=== PATIENT | female | born 1990 | race American Indian/Alaskan Native ===

== ENCOUNTER 2017-11-30 18:34 | Emergency (ER) | payer MEDICAID ==
[2017-11-30 20:12] LABS: Hematocrit 24.9 % (30.3-42.9); Hemoglobin 7.7 gm/dl (10.1-14.3); Mean Corpuscular HGB Conc 31 % (30-34); Platelet Count 783 K/mm3 (140-440); Red Blood Count 3.64 M/mm3 (3.65-5.03)
[2017-11-30 20:22] LABS: Mean Corpuscular Hemoglobin 21 pg (28-32); Mean Corpuscular Volume 68 fl (79-97)
[2017-12-01 00:34] VITALS: BP 97/58
[2017-12-01] MEDS ORDERED: PERCOCET 5/325 PO ONE (01:45)
--- NOTE | 2017-12-01 03:53 | Emergency Department Report ---
ED General Adult HPI - General Chief complaint: Rectal Pain Stated complaint: HERROIDS AND EAR INFECTION Time Seen by Provider: 12/01/17 02:30 Source: patient Mode of arrival: Ambulatory Limitations: No Limitations - History of Present Illness Initial comments: 27-year-old -Algerian female comes in complaining of hemorrhoids and left ear pain. Patient has a history of Crohn's. Patient denies any abdominal pain at this time. She reports reports that she constantly strains due to her Crohn's. Patient reports that she is try taken the tetanus pads and over-the- counter suppositories which she reports has not helped. She does admit to having some tarry blood but she reports she is anemic and does come and goes of her Crohn's. Patient also complains of left ear pain. She has not taken any pain medication for this. She denies any dizziness shortness of breath chest pain. -: days(s) (5) Location: buttocks Radiation: non-radiation Severity scale (0 -10): 2 Quality: stabbing, sharp Consistency: constant Improves with: none Worsens with: movement - Related Data Previous Rx's Medication Instructions Recorded Last Taken Type Ferrous Sulfate [Feosol] 1 tab PO BID #60 tablet 04/24/13 10/30/13 14:00 Rx Docusate Sodium [Colace CAP] 100 mg PO BID #60 capsule 04/16/15 Unknown Rx Dicyclomine [Bentyl] 10 mg PO QID PRN #20 bottle 10/16/17 Unknown Rx Levofloxacin [Levaquin TAB] 500 mg PO QDAY #10 tablet 10/16/17 Unknown Rx metroNIDAZOLE [Flagyl] 500 mg PO Q8HR #30 tablet 10/16/17 Unknown Rx Hydrocortisone [Anusol-Hc] 1 suppositor RC QID PRN #1 box 12/01/17 Unknown Rx Allergies Allergy/AdvReac Type Severity Reaction Status Date / Time No Known Allergies Allergy Verified 06/14/13 00:51 ED Review of Systems ROS: Stated complaint: HERROIDS AND EAR INFECTION Other details as noted in HPI ED Past Medical Hx - Past Medical History Hx Hypertension: No Hx Congestive Heart Failure: No Hx Diabetes: No Hx Deep Vein Thrombosis: No Hx Renal Disease: No Hx Sickle Cell Disease: No Hx Seizures: No Hx Asthma: No Hx COPD: No Hx HIV: No Additional medical history: crohn's and anemia - Surgical History Past Surgical History?: No - Social History Smoking Status: Current Every Day Smoker Substance Use Type: None - Medications Home Medications: Home Medications Medication Instructions Recorded Confirmed Last Taken Type Ferrous Sulfate [Feosol] 1 tab PO BID #60 tablet 04/24/13 10/14/17 10/30/13 14: 00 Rx Docusate Sodium [Colace CAP] 100 mg PO BID #60 capsule 04/16/15 10/14/17 Unknown Rx Dicyclomine [Bentyl] 10 mg PO QID PRN #20 bottle 10/16/17 Unknown Rx Levofloxacin [Levaquin TAB] 500 mg PO QDAY #10 tablet 10/16/17 Unknown Rx metroNIDAZOLE [Flagyl] 500 mg PO Q8HR #30 tablet 10/16/17 Unknown Rx Hydrocortisone [Anusol-Hc] 1 suppositor RC QID PRN #1 box 12/01/17 Unknown Rx ED Physical Exam - General Limitations: No Limitations General appearance: alert, in no apparent distress - Head Head exam: Present: atraumatic, normocephalic - ENT ENT exam: Present: mucous membranes moist, TM's normal bilaterally - Expanded ENT Exam Expanded Throat exam: Positive: tonsillar exudate (left tonsillar superior) - Rectal Rectal exam: Present: normal rectal tone, hemorrhoids (not thrombosed non- erythematous non-edematous). Absent: bloody stool - Extremities Exam Extremities exam: Present: normal inspection - Skin Skin exam: Present: warm, dry, intact, normal color. Absent: rash ED Course Vital Signs 11/30/17 12/01/17 18:54 00:31 Temperature 98.5 F 99.0 F Pulse Rate 131 H 112 H Respiratory 18 18 Rate Blood Pressure 106/66 Blood Pressure 97/58 [Right] O2 Sat by Pulse 99 100 Oximetry ED Medical Decision Making - Lab Data Result diagrams: 11/30/17 19:55 - Medical Decision Making Patient has been evaluated by this provider fast track. Patient was given Percocet for pain management. Discussed the patient I would discharge her on Anusol suppositories Refer her to colorectal. Ibuprofen for pain management. Critical care attestation.: If time is entered above; I have spent that time in minutes in the direct care of this critically ill patient, excluding procedure time. ED Disposition Clinical Impression: External hemorrhoids, Anemia due to chronic blood loss, Left ear pain Disposition: TO HOME OR SELFCARE Is pt being admited?: No Does the pt Need Aspirin: No Condition: Stable Instructions: Anemia (ED), Hemorrhoids (ED) Additional Instructions: Please use suppositories as prescribed. If her symptoms persist please follow- up with your colorectal specialist. Prescriptions: Hydrocortisone [Anusol-Hc] 1 suppositor RC QID PRN #1 box PRN Reason: Pain , Severe (7-10) Referrals: PRIMARY CARE,MD [Primary Care Provider] - 3-5 Days Forms: Work/School Release Form(ED)
== END 2017-12-01 04:20 | disposition home or self-care (01) ==
LOC: ED 18:34
DX: K64.4 Residual hemorrhoidal skin tags (principal); D50.0 Iron deficiency anemia secondary to blood loss (chronic); H92.02 Otalgia, left ear; F17.200 Nicotine dependence, unspecified, uncomplicated
CPT/HCPCS: 36415; 84703; 85027; 87116; 87430; 99283

== ENCOUNTER 2017-12-04 13:22 | Emergency (ER) | payer MEDICAID ==
[2017-12-04 13:46] VITALS: BP 104/66
--- NOTE | 2017-12-04 14:03 | Emergency Department Report ---
ED Male HPI - General Chief complaint: GI Bleed Stated complaint: HEMORRHOIDS Time Seen by Provider: 12/04/17 13:59 Source: patient, family Mode of arrival: Wheelchair Limitations: No Limitations - Related Data Previous Rx's Medication Instructions Recorded Last Taken Type Ferrous Sulfate [Feosol] 1 tab PO BID #60 tablet 04/24/13 10/30/13 14:00 Rx Docusate Sodium [Colace CAP] 100 mg PO BID #60 capsule 04/16/15 Unknown Rx Dicyclomine [Bentyl] 10 mg PO QID PRN #20 bottle 10/16/17 Unknown Rx Levofloxacin [Levaquin TAB] 500 mg PO QDAY #10 tablet 10/16/17 Unknown Rx metroNIDAZOLE [Flagyl] 500 mg PO Q8HR #30 tablet 10/16/17 Unknown Rx Hydrocortisone [Anusol-Hc] 1 suppositor RC QID PRN #1 box 12/01/17 Unknown Rx Allergies Allergy/AdvReac Type Severity Reaction Status Date / Time No Known Allergies Allergy Verified 06/14/13 00:51 ED Review of Systems ROS: Stated complaint: HEMORRHOIDS Other details as noted in HPI ED Past Medical Hx - Past Medical History Previous Medical History?: Yes Hx Hypertension: No Hx Congestive Heart Failure: No Hx Diabetes: No Hx Deep Vein Thrombosis: No Hx Renal Disease: No Hx Sickle Cell Disease: No Hx Seizures: No Hx Asthma: No Hx COPD: No Hx HIV: No Additional medical history: crohn's and anemia - Surgical History Past Surgical History?: No - Social History Smoking Status: Current Every Day Smoker Substance Use Type: Marijuana, Prescribed - Medications Home Medications: Home Medications Medication Instructions Recorded Confirmed Last Taken Type Ferrous Sulfate [Feosol] 1 tab PO BID #60 tablet 04/24/13 10/14/17 10/30/13 14: 00 Rx Docusate Sodium [Colace CAP] 100 mg PO BID #60 capsule 04/16/15 10/14/17 Unknown Rx Dicyclomine [Bentyl] 10 mg PO QID PRN #20 bottle 10/16/17 Unknown Rx Levofloxacin [Levaquin TAB] 500 mg PO QDAY #10 tablet 10/16/17 Unknown Rx metroNIDAZOLE [Flagyl] 500 mg PO Q8HR #30 tablet 10/16/17 Unknown Rx Hydrocortisone [Anusol-Hc] 1 suppositor RC QID PRN #1 box 12/01/17 Unknown Rx ED Physical Exam - General Limitations: No Limitations ED Course Vital Signs 12/04/17 13:42 Temperature 99.1 F Pulse Rate 129 H Respiratory 18 Rate Blood Pressure 104/66 O2 Sat by Pulse 99 Oximetry Critical care attestation.: If time is entered above; I have spent that time in minutes in the direct care of this critically ill patient, excluding procedure time. ED Disposition Condition: Stable
[2017-12-04] MEDS ORDERED: LET TOPICAL TP ONE (14:12)
[2017-12-04] MEDS ORDERED: NORCO 5/325 PO ONE (14:12)
--- NOTE | 2017-12-04 14:13 | Emergency Department Report ---
ED Female HPI - General Chief complaint: GI Bleed Stated complaint: HEMORRHOIDS Time Seen by Provider: 12/04/17 13:59 Source: patient, family Mode of arrival: Wheelchair Limitations: No Limitations - History of Present Illness Initial comments: This is a 37-year-old female here reports that she is having hemorrhoid pain. She says she was here on 12/01/2017 and was given prescription for hydrocortisone suppository for hemorrhoids. She said this is very going on for over a week and chart review reflects patient visits to emergency room on 2017 was given prescription for referral but she did not follow up. Patient says she could not reach the doctor. Denies any rectal bleeding in or constipation. Denies any nausea or vomiting. Denies any back pain or abdominal pain. Denies any urinary burning, frequency or urgency. Last menstrual. A 11/20/2017. She is here to be evaluated. MD Complaint: other (hemorrhoid and rectal pain) Onset/Timin -: week(s) Location: other (rectal) Radiation: non-radiating Severity: severe Severity scale (0 -10): 10 Quality: burning Consistency: constant Improves with: none Worsens with: movement Are you Now?: No Last Menstrual Period: 11/20/17 EDC: 08/27/18 Associated Symptoms: denies: hematuria, rash, seizure, shortness of breath, syncope, weakness, other, vaginal discharge, vaginal bleeding, abdominal pain, nausea/vomiting, fever/chills, headaches, loss of appetite, dysuria - Related Data Sexually active: No Previous Rx's Medication Instructions Recorded Last Taken Type Ferrous Sulfate [Feosol] 1 tab PO BID #60 tablet 04/24/13 10/30/13 14:00 Rx Docusate Sodium [Colace CAP] 100 mg PO BID #60 capsule 04/16/15 Unknown Rx Dicyclomine [Bentyl] 10 mg PO QID PRN #20 bottle 10/16/17 Unknown Rx Levofloxacin [Levaquin TAB] 500 mg PO QDAY #10 tablet 10/16/17 Unknown Rx metroNIDAZOLE [Flagyl] 500 mg PO Q8HR #30 tablet 10/16/17 Unknown Rx Hydrocortisone [Anusol-Hc] 1 suppositor RC QID PRN #1 box 12/01/17 Unknown Rx Hydrocortisone [Anusol-Hc] 30 gm TP BID PRN #1 cream..g. 12/04/17 Unknown Rx Let Topical 3 ml TP Q8H PRN #1 syringe 12/04/17 Unknown Rx traMADol [Ultram] 50 mg PO Q6HR PRN #12 tablet 12/04/17 Unknown Rx Allergies Allergy/AdvReac Type Severity Reaction Status Date / Time No Known Allergies Allergy Verified 06/14/13 00:51 ED Review of Systems ROS: Stated complaint: HEMORRHOIDS Other details as noted in HPI Constitutional: denies: chills, fever ENT: denies: throat pain Respiratory: denies: cough, shortness of breath, SOB with exertion, SOB at rest , wheezing Cardiovascular: denies: chest pain, palpitations, edema, syncope Gastrointestinal: other (rectal pain and hemorrhoids). denies: abdominal pain, nausea, diarrhea, constipation, hematemesis, melena, hematochezia Genitourinary: denies: urgency, dysuria, frequency, hematuria, discharge, abnormal menses Musculoskeletal: denies: back pain, joint swelling, arthralgia, myalgia Skin: denies: rash, lesions Neurological: denies: headache, weakness Psychiatric: denies: depression ED Past Medical Hx - Past Medical History Previous Medical History?: Yes Hx Hypertension: No Hx Congestive Heart Failure: No Hx Diabetes: No Hx Deep Vein Thrombosis: No Hx Renal Disease: No Hx Sickle Cell Disease: No Hx Seizures: No Hx Asthma: No Hx COPD: No Hx HIV: No Additional medical history: crohn's and anemia - Surgical History Past Surgical History?: No - Family History Family history: hypertension - Social History Smoking Status: Current Every Day Smoker Substance Use Type: Marijuana, Prescribed - Medications Home Medications: Home Medications Medication Instructions Recorded Confirmed Last Taken Type Ferrous Sulfate [Feosol] 1 tab PO BID #60 tablet 04/24/13 10/14/17 10/30/13 14: 00 Rx Docusate Sodium [Colace CAP] 100 mg PO BID #60 capsule 04/16/15 10/14/17 Unknown Rx Dicyclomine [Bentyl] 10 mg PO QID PRN #20 bottle 10/16/17 Unknown Rx Levofloxacin [Levaquin TAB] 500 mg PO QDAY #10 tablet 10/16/17 Unknown Rx metroNIDAZOLE [Flagyl] 500 mg PO Q8HR #30 tablet 10/16/17 Unknown Rx Hydrocortisone [Anusol-Hc] 1 suppositor RC QID PRN #1 box 12/01/17 Unknown Rx Hydrocortisone [Anusol-Hc] 30 gm TP BID PRN #1 cream..g. 12/04/17 Unknown Rx Let Topical 3 ml TP Q8H PRN #1 syringe 12/04/17 Unknown Rx traMADol [Ultram] 50 mg PO Q6HR PRN #12 tablet 12/04/17 Unknown Rx ED Physical Exam - General Limitations: No Limitations General appearance: alert, in no apparent distress - Head Head exam: Present: atraumatic, normocephalic, normal inspection - Eye Eye exam: Present: normal appearance, PERRL, EOMI Pupils: Present: normal accommodation - ENT ENT exam: Present: normal exam, normal orophraynx, mucous membranes moist - Neck Neck exam: Present: normal inspection, full ROM, other (no clubbing, cyanosis or edema. Distal pulses are extremities and no neurovascular compromise). Absent: tenderness, lymphadenopathy - Respiratory Respiratory exam: Present: normal lung sounds bilaterally. Absent: respiratory distress, chest wall tenderness - Cardiovascular Cardiovascular Exam: Present: normal rhythm, tachycardia, normal heart sounds. Absent: systolic murmur, diastolic murmur - GI/Abdominal GI/Abdominal exam: Present: soft, normal bowel sounds. Absent: distended, tenderness, guarding, rebound, rigid, organomegaly, mass, bruit, pulsatile mass , hernia - Rectal Rectal exam: Present: normal rectal tone, hemorrhoids, tenderness. Absent: fecal impaction, mass - Extremities Exam Extremities exam: Present: normal inspection, full ROM, normal capillary refill , other (no clubbing, cyanosis or edema. Positive pulses on extremities and no neurovascular compromise.). Absent: tenderness, pedal edema, joint swelling, calf tenderness - Back Exam Back exam: Present: normal inspection, full ROM, other (ambulates without any difficulties). Absent: tenderness, CVA tenderness (R), CVA tenderness (L), muscle spasm, paraspinal tenderness, vertebral tenderness, rash noted - Neurological Exam Neurological exam: Present: alert, oriented X3, normal gait - Psychiatric Psychiatric exam: Present: normal affect, normal mood - Skin Skin exam: Present: warm, dry, intact, normal color. Absent: rash ED Course Vital Signs 12/04/17 12/04/17 13:42 14:24 Temperature 99.1 F Pulse Rate 129 H Respiratory 18 16 Rate Blood Pressure 104/66 O2 Sat by Pulse 99 Oximetry Vital Signs 12/04/17 12/04/17 12/04/17 13:42 14:24 15:33 Temperature 99.1 F Pulse Rate 129 H 92 H Respiratory 18 16 Rate Blood Pressure 104/66 O2 Sat by Pulse 99 Oximetry - Reevaluation(s) Reevaluation #1: 12/04/17 15:32 Topical let placed rectal area and hydrocodone 5/325 mg by mouth 2 tablets given and patient voice relief of pain. She states she is feeling much better. Heart rate is stable. ED Medical Decision Making - Medical Decision Making ED course: This is a 27-year-old female here report that she has hemorrhoids that she was seen here on 12/01/2017 and was given steroids suppository which did not help for her hemorrhoids. She is here complaining of rectal pain and did not follow up as instructed. She is here to be evaluated. Patient was seen and examined by myself. She was found to have a small external hemorrhoid to rectal area without any bleeding. No thrombosis to hemorrhoid. Internal rectal exam with normal rectal tone and no hemorrhoids felt. No rectal bleeding or discharge noted. No signs of abscess or cellulitis. Patient was given [place] 5/325 2 tablets by mouth and topical let applied to area with relief of pain. Patient also had tachycardia 129 which has resolved. Suspect from pain Patient reports that she is feeling better. A/P 1: Rectal pain due to hemorrhoids-topical let placed the site and [place] 5/325 mg to by mouth given which relief of pain. I will discharge patient home on Ultram, Anusol cream and topical LET. We'll refer patient to surgery and gastroenterology 2: Tachycardia- Resolved Patient educated on medication, treatment plan, sitz baths and need to follow- up with referrals. She voiced understanding Patient referred to router tender and general surgery. Patient discharged home in stable condition. Heart rate is stabilized. Vital signs are stable she is afebrile. She says she is feeling better after medication. I instructed her to follow up with gastroenterology and general surgery in 4 days and to follow up with her primary care physician also wishes that she doesn't have one. She was given a prescription for Ultram, Anusol topical and LET topical. I also encouraged her to return to the emergency room if symptoms worsens and she voiced understanding. - Differential Diagnosis rectal bleeding, rectal mass, rectal abscess, hemorrhoid, constipation Critical care attestation.: If time is entered above; I have spent that time in minutes in the direct care of this critically ill patient, excluding procedure time. ED Disposition Clinical Impression: External hemorrhoid, Anal or rectal pain Disposition: TO HOME OR SELFCARE Is pt being admited?: No Does the pt Need Aspirin: No Condition: Stable Instructions: Hemorrhoids (ED), Hydrocortisone (Rectal), Sitz Bath (GEN) Additional Instructions: Please follow up with gastroenterology and general surgery in 4 days. See referrals on discharge instruction paperwork Follow up with Primary care physician Please see discharge instructions on sitz baths Take medication as prescribed Please note several for a heavy machine or taking Ultram as this medication causes drowsiness Symptoms return, return to the emergency room Prescriptions: Hydrocortisone [Anusol-Hc] 30 gm TP BID PRN #1 cream..g. PRN Reason: Hemorrhoids Let Topical 3 ml TP Q8H PRN #1 syringe PRN Reason: hemorrhoid pain traMADol [Ultram] 50 mg PO Q6HR PRN #12 tablet PRN Reason: Pain Referrals: JUAN DANIEL TURNER MD [Primary Care Provider] - 12/05/17 HUMAIRA DEL ROSARIO MD [Staff Physician] - 12/08/17 [facility] [Provider Group] - 12/08/17 [facility] [Outside] - 12/05/17 Forms: Accompanied Note
== END 2017-12-04 16:17 | disposition home or self-care (01) ==
LOC: ED 13:22
DX: K64.4 Residual hemorrhoidal skin tags (principal); K62.89 Other specified diseases of anus and rectum; R10.2 Pelvic and perineal pain; F17.200 Nicotine dependence, unspecified, uncomplicated; F12.10 Cannabis abuse, uncomplicated

== ENCOUNTER 2019-02-24 08:58 | Emergency (ER) | payer MEDICAID, OTHER ==
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
[2019-02-24] MEDS ORDERED: KETOROLAC 60 MG/2 ML INJ IM ONE (09:15)
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
[2019-02-24] MEDS ORDERED: HYDROcodone/ACETAMINOPHEN 5-325 MG TAB PO ONE (10:45)
[2019-02-24] MEDS ORDERED: CYCLOBENZAPRINE 10 MG TAB PO ONE (10:45)
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
[2019-02-24 11:34] VITALS: BP 132/54
== END 2019-02-24 11:33 | disposition home or self-care (01) ==
LOC: ED 08:58
DX: M79.10 Myalgia, unspecified site (principal); R51 Headache; M54.2 Cervicalgia; F17.200 Nicotine dependence, unspecified, uncomplicated; F12.10 Cannabis abuse, uncomplicated; Z86.2 Personal history of diseases of the blood and blood-forming organs and certain disorders involving the immune mechanism; V89.2XXA Person injured in unspecified motor-vehicle accident, traffic, initial encounter; Y93.89 Activity, other specified; Y92.410 Unspecified street and highway as the place of occurrence of the external cause; Y99.8 Other external cause status
CPT/HCPCS: 70450; 72125; 96372; 99283; J1885

== ENCOUNTER 2019-03-01 01:04 | Emergency (ER) | payer MEDICAID, OTHER ==
[2019-03-01 01:09] VITALS: BP 102/58
[2019-03-01] MEDS ORDERED: KETOROLAC 30 MG/1 ML INJ IM ONE (02:03)
[2019-03-01] MEDS ORDERED: BUTALB/ACETAMINOPHEN/CAFFEINE TAB PO ONE (02:03)
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
== END 2019-03-01 03:27 | disposition home or self-care (01) ==
LOC: ED 01:04
DX: G44.319 Acute post-traumatic headache, not intractable (principal); F17.200 Nicotine dependence, unspecified, uncomplicated; Z79.1 Long term (current) use of non-steroidal anti-inflammatories (NSAID); Z79.899 Other long term (current) drug therapy; V89.2XXD Person injured in unspecified motor-vehicle accident, traffic, subsequent encounter
CPT/HCPCS: 96372; 99282; J1885

== ENCOUNTER 2019-03-10 03:23 | Inpatient (IN) | payer MEDICAID, OTHER ==
[2019-03-10] MEDS ORDERED: NACL 0.9% 500 ML 500 ML IV ONE ×2 (03:43→06:42)
[2019-03-10] MEDS ORDERED: TYLENOL ONE ×2 (04:02→04:03)
[2019-03-10] MEDS ORDERED: ZOFRAN ODT ONE (04:11)
[2019-03-10] MEDS: TYLENOL PO ONE ×2 (04:16→05:36)
[2019-03-10] MEDS ORDERED: ZOFRAN ODT PO ONE (04:23)
[2019-03-10 04:31] LABS: Calcium 8.1 mg/dL (8.4-10.2)
[2019-03-10 04:32] LABS: Albumin 3.8 g/dL (3.9-5)
--- NOTE | 2019-03-10 04:37 | XRay Report ---
CHEST 1 VIEW INDICATION / CLINICAL INFORMATION: possible Sepsis. COMPARISON: None available. FINDINGS: SUPPORT DEVICES: None. HEART / MEDIASTINUM: No significant abnormality. LUNGS / PLEURA: No significant pulmonary or pleural abnormality. No pneumothorax. ADDITIONAL FINDINGS: No significant additional findings. IMPRESSION: 1. No acute findings. Signer Name: Danny Wyman MD Signed: 03/10/2019 4:33 AM Workstation Name: [id number]
[2019-03-10 04:38] LABS: Basophils # (Auto) TNR K/mm3 (0.0-0.1); Basophils % (Auto) TNR % (0.0-1.8); Eosinophils # (Auto) TNR K/mm3 (0.0-0.4); Eosinophils % (Auto) TNR % (0.0-4.3); Hematocrit TNR % (30.3-42.9); Hemoglobin TNR gm/dl (10.1-14.3); Lymphocytes # (Auto) TNR K/mm3 (1.2-5.4); Lymphocytes % (Auto) TNR % (13.4-35.0); Mean Corpuscular HGB Conc TNR % (30-34); Mean Corpuscular Volume TNR fl (79-97); Mean Platelet Volume TNR fl (6-12); Monocytes # (Auto) TNR K/mm3 (0.0-0.8); Monocytes % (Auto) TNR % (0.0-7.3); Platelet Count TNR K/mm3 (140-440); Red Blood Count TNR M/mm3 (3.65-5.03); Red Cell Distribution Width TNR % (13.2-15.2)
[2019-03-10] MEDS ORDERED: TYLENOL PR ONE (04:42)
[2019-03-10] MEDS ORDERED: NACL 0.9% 1000 ML 1,000 ML IV ONE (04:55)
[2019-03-10] MEDS ORDERED: NACL 0.9% 1000 ML 2,000 ML IV ONE (04:55)
[2019-03-10] MEDS ORDERED: K-DUR PO ONE (04:55)
[2019-03-10] MEDS ORDERED: SOLU-Medrol IV ONE (05:32)
--- NOTE | 2019-03-10 05:34 | Event Note ---
Date: 03/10/19 Medical screening examination: 29-year-old female, history of Crohn's disease, gastroenterology is Dr Deshawn Pacheco, presenting with weakness, fever, tachycardia, hypotension. She is not currently on immune suppressing medications. test is pending. Patient will be resuscitated according to the sepsis pathway. Anticipated admission. Steroids ordered. Tylenol ordered. Potassium ordered. Vital Signs 03/10/19 03/10/19 03/10/19 03:36 03:39 03:44 Temperature 103.2 F H Pulse Rate 136 H Respiratory 20 18 Rate Blood Pressure 84/43 84/43 O2 Sat by Pulse 100 100 Oximetry Lab Results 03/10/19 03/10/19 03/10/19 Range/Units 03:51 03:51 03:51 WBC TNR RBC TNR Hgb TNR Hct TNR MCV TNR MCH TNR MCHC TNR RDW TNR Plt Count TNR Lymph % (Auto) TNR Surry % (Auto) TNR Eos % (Auto) TNR Baso % (Auto) TNR Lymph # TNR Surry # TNR Eos # TNR Baso # TNR Add Manual Diff TNR Seg Neutrophils % TNR Seg Neutrophils # TNR VBG pH (7.320-7.420) Sodium 131 L (137-145) mmol/L Potassium 2.8 L* (3.6-5.0) mmol/L Chloride 95.7 L (98-107) mmol/L Carbon Dioxide 16 L (22-30) mmol/L Anion Gap 22 mmol/L BUN 18 H (7-17) mg/dL Creatinine 1.4 H (0.7-1.2) mg/dL Estimated GFR 53 ml/min BUN/Creatinine Ratio 13 % Glucose 127 H (65-100) mg/dL Lactic Acid 1.90 (0.7-2.0) mmol/L Calcium 8.1 L (8.4-10.2) mg/dL Total Bilirubin 0.60 (0.1-1.2) mg/dL AST 40 (5-40) units/L ALT 20 (7-56) units/L Alkaline Phosphatase 69 (35-129) units/L Total Protein 8.9 H (6.3-8.2) g/dL Albumin 3.8 L (3.9-5) g/dL Albumin/Globulin Ratio 0.7 % 03/10/19 Range/Units 03:51 WBC RBC Hgb Hct MCV MCH MCHC RDW Plt Count Lymph % (Auto) Surry % (Auto) Eos % (Auto) Baso % (Auto) Lymph # Surry # Eos # Baso # Add Manual Diff Seg Neutrophils % Seg Neutrophils # VBG pH 7.386 (7.320-7.420) Sodium (137-145) mmol/L Potassium (3.6-5.0) mmol/L Chloride (98-107) mmol/L Carbon Dioxide (22-30) mmol/L Anion Gap mmol/L BUN (7-17) mg/dL Creatinine (0.7-1.2) mg/dL Estimated GFR ml/min BUN/Creatinine Ratio % Glucose (65-100) mg/dL Lactic Acid (0.7-2.0) mmol/L Calcium (8.4-10.2) mg/dL Total Bilirubin (0.1-1.2) mg/dL AST (5-40) units/L ALT (7-56) units/L Alkaline Phosphatase (35-129) units/L Total Protein (6.3-8.2) g/dL Albumin (3.9-5) g/dL Albumin/Globulin Ratio %
[2019-03-10 05:35] LABS: Mean Corpuscular HGB Conc 25 % (30-34); Platelet Count 324 K/mm3 (140-440); Red Blood Count 3.63 M/mm3 (3.65-5.03)
[2019-03-10 05:37] LABS: INR 1.4 (0.87-1.13)
[2019-03-10 05:39] LABS: Hematocrit 20.2 % (30.3-42.9); Hemoglobin 5.1 gm/dl (10.1-14.3); Mean Corpuscular Volume 56 fl (79-97)
[2019-03-10] MEDS: KCL 10MEQ/100ML 10 MEQ/100 ML BAG IV SCH ×3 (05:40→09:55)
[2019-03-10] MEDS ORDERED: ZOSYN/NS 3.375GM/50ML 3.375 GM/50 ML BAG IV ONE (06:37)
[2019-03-10] MEDS ORDERED: MORPHINE IV ONE (06:42)
[2019-03-10] MEDS ORDERED: ZOFRAN IV ONE (06:42)
--- NOTE | 2019-03-10 06:55 | Emergency Department Report ---
ED Abdominal Pain HPI - General Chief Complaint: Abdominal Pain Stated Complaint: CROHNS FLARE UP Time Seen by Provider: 03/10/19 06:36 Source: patient Mode of arrival: Ambulatory Limitations: No Limitations - History of Present Illness Initial Comments: Patient is 29 years old female with history of Crohn's disease. Patient presented to the ER complaining of abdominal pain and fever for the last 3 days. Patient described her pain as diffuse with no radiation. Patient also complaining of bloody diarrhea. Patient found to be septic with a temperature of 103, tachycardia and hypotension. Sepsis protocol initiated. MD Complaint: abdominal pain -: days(s) Location: diffuse Radiation: none Migration to: no migration Severity scale (0 -10): 6 Quality: cramping - Related Data Previous Rx's Medication Instructions Recorded Last Taken Type Cyclobenzaprine [Flexeril] 10 mg PO TID PRN #10 tablet 02/24/19 Unknown Rx Ibuprofen [Motrin] 800 mg PO Q8HR PRN #30 tablet 02/24/19 Unknown Rx predniSONE [Deltasone] 20 mg PO DAILY #5 tablet 02/24/19 Unknown Rx Butalb/Acetamin/Caff 50-325-40 1 tab PO Q6HR PRN #15 tab 03/01/19 Unknown Rx [Fioricet 50-325-40] Allergies Allergy/AdvReac Type Severity Reaction Status Date / Time No Known Allergies Allergy Verified 06/14/13 00:51 ED Review of Systems ROS: Stated complaint: CROHNS FLARE UP Other details as noted in HPI Comment: All other systems reviewed and negative Constitutional: denies: chills, fever Respiratory: denies: cough, shortness of breath, SOB with exertion Cardiovascular: denies: chest pain, palpitations Gastrointestinal: abdominal pain, nausea, diarrhea, hematochezia. denies: vomiting, constipation, hematemesis, melena Genitourinary: denies: urgency, dysuria, frequency, hematuria, discharge Neurological: denies: headache, weakness, numbness, paresthesias, confusion ED Past Medical Hx - Past Medical History Previous Medical History?: Yes Hx Hypertension: No Hx Congestive Heart Failure: No Hx Diabetes: No Hx Deep Vein Thrombosis: No Hx Renal Disease: No Hx Sickle Cell Disease: No Hx Seizures: No Hx Asthma: No Hx COPD: No Hx HIV: No Additional medical history: crohn's and anemia - Surgical History Past Surgical History?: No - Social History Smoking Status: Light Tobacco Smoker Substance Use Type: Alcohol - Medications Home Medications: Home Medications Medication Instructions Recorded Confirmed Last Taken Type Cyclobenzaprine [Flexeril] 10 mg PO TID PRN #10 tablet 02/24/19 Unknown Rx Ibuprofen [Motrin] 800 mg PO Q8HR PRN #30 tablet 02/24/19 Unknown Rx predniSONE [Deltasone] 20 mg PO DAILY #5 tablet 02/24/19 Unknown Rx Butalb/Acetamin/Caff 50-325-40 1 tab PO Q6HR PRN #15 tab 03/01/19 Unknown Rx [Fioricet 50-325-40] ED Physical Exam - General Limitations: No Limitations General appearance: alert, in no apparent distress - Head Head exam: Present: atraumatic, normocephalic, normal inspection - Eye Eye exam: Present: normal appearance, PERRL - ENT ENT exam: Present: mucous membranes dry - Neck Neck exam: Present: normal inspection, full ROM. Absent: tenderness, meningismus, lymphadenopathy, thyromegaly - Respiratory Respiratory exam: Present: normal lung sounds bilaterally - Cardiovascular Cardiovascular Exam: Present: tachycardia, normal heart sounds - GI/Abdominal GI/Abdominal exam: Present: soft, normal bowel sounds. Absent: distended, tenderness, guarding, rebound, rigid, organomegaly, mass, bruit, pulsatile mass, hernia - Extremities Exam Extremities exam: Present: normal inspection, full ROM, normal capillary refill. Absent: tenderness, pedal edema, calf tenderness - Back Exam Back exam: Present: normal inspection, full ROM. Absent: CVA tenderness (R), CVA tenderness (L), muscle spasm, paraspinal tenderness, vertebral tenderness - Neurological Exam Neurological exam: Present: alert, oriented X3, CN II-XII intact, normal gait, reflexes normal - Psychiatric Psychiatric exam: Present: normal mood - Skin Skin exam: Present: warm, intact, normal color ED Course Vital Signs 03/10/19 03/10/19 03/10/19 03:36 03:39 03:44 Temperature 103.2 F H Pulse Rate 136 H Respiratory 20 18 Rate Blood Pressure 84/43 84/43 Blood Pressure [Right] O2 Sat by Pulse 100 100 Oximetry 03/10/19 03/10/19 03/10/19 03:46 04:00 04:15 Temperature Pulse Rate Respiratory Rate Blood Pressure 84/43 84/43 96/56 Blood Pressure [Right] O2 Sat by Pulse 98 100 100 Oximetry 03/10/19 03/10/19 03/10/19 04:30 04:45 05:00 Temperature Pulse Rate Respiratory 18 Rate Blood Pressure 92/48 93/54 Blood Pressure [Right] O2 Sat by Pulse 100 100 Oximetry 03/10/19 03/10/19 03/10/19 05:04 05:16 05:30 Temperature Pulse Rate Respiratory Rate Blood Pressure 84/38 84/38 85/46 Blood Pressure [Right] O2 Sat by Pulse 100 100 100 Oximetry 03/10/19 03/10/19 03/10/19 05:46 06:00 06:16 Temperature Pulse Rate Respiratory Rate Blood Pressure 85/46 74/45 74/45 Blood Pressure [Right] O2 Sat by Pulse 100 100 100 Oximetry 03/10/19 03/10/19 03/10/19 06:30 06:40 06:42 Temperature Pulse Rate Respiratory Rate Blood Pressure 96/56 96/56 96/56 Blood Pressure [Right] O2 Sat by Pulse 100 100 99 Oximetry 03/10/19 03/10/19 03/10/19 06:44 06:46 06:48 Temperature Pulse Rate Respiratory Rate Blood Pressure 96/56 96/56 96/56 Blood Pressure [Right] O2 Sat by Pulse 100 100 100 Oximetry 03/10/19 03/10/19 03/10/19 06:50 06:52 06:54 Temperature Pulse Rate Respiratory Rate Blood Pressure 96/56 96/56 96/56 Blood Pressure [Right] O2 Sat by Pulse 100 100 100 Oximetry 03/10/19 03/10/19 03/10/19 06:55 07:50 07:55 Temperature 99.2 F Pulse Rate 115 H Respiratory 20 20 Rate Blood Pressure 96/56 Blood Pressure 95/47 [Right] O2 Sat by Pulse 100 100 Oximetry ED Medical Decision Making - Lab Data Result diagrams: 03/10/19 05:07 03/10/19 03:51 - Radiology Data Radiology results: report reviewed - Medical Decision Making Patient is 29 years old female with history of Crohn's disease. Patient presented to the ER complaining of abdominal pain and fever for the last 3 days. Patient described her pain as diffuse with no radiation. Patient also complaining of bloody diarrhea. Patient found to be septic with a temperature of 103, tachycardia and hypotension. Sepsis protocol initiated. Patient found to have a white blood cells of 25.9. Potassium of 2.5. Hemog lobin of 5. Patient received 3 L of normal saline with significant improvement in the blood pressure. Patient current blood pressure is 109/62. Patient received 1 units of PRBC. Hypokalemia is corrected with 20 mEq of KCl. Patient also received 1 g of magnesium. Patient received Zosyn. A CT abdomen and pelvis is unremarkable. Patient stated that she is feeling better. I discussed the patient with Dr. Patterson, he advised to admit the patient to Dr. Oc Brown. Critical Care Time: Yes Critical care time in (mins) excluding proc time.: 45 Critical care attestation.: If time is entered above; I have spent that time in minutes in the direct care of this critically ill patient, excluding procedure time. ED Disposition Clinical Impression: Sepsis, Abdominal pain, Acute blood loss anemia, Acute hypokalemia, Hypomagnesemia Disposition: 09 OP ADMIT IP TO THIS HOSP Is pt being admited?: Yes Condition: Stable Instructions: Abdominal Pain (ED) Referrals: PRIMARY CARE, [Primary Care Provider] - 3-5 Days
--- NOTE | 2019-03-10 07:38 | Cat Scan Report ---
CT abdomen pelvis w con INDICATION / CLINICAL INFORMATION: MAIN: abdominal pain hx chrons 100 ml Omni 300. TECHNIQUE: All CT scans at this location are performed using CT dose reduction for ALARA by means of automated e xposure control. COMPARISON: None available. FINDINGS: The lower lungs are clear, no acute disease. ABDOMEN: The liver, spleen and pancreas are normal. Punctate intrarenal calculi are seen bilaterally. There are bilateral extrarenal pelvises but no evidence of hydronephrosis or obstruction. Fluid is identified in distal small bowel and right colon without mural edema or significant distenti on. Pelvis: The appendix is normal and in a retrocecal location. Small ovarian cysts are demonstrated bilaterally. There are no dependent fluid collections seen within the pelvis. Fluid is seen in the rectum. SI joint sclerosis is present bilaterally. IMPRESSION: 1. Bilateral nephrolithiasis without hydronephrosis. 2. Nonspecific fluid in small bowel and colon unassociated with acute inflammatory findings. Signer Name: Danny Wyman MD Signed: 03/10/2019 7:34 AM Workstation Name: [id number]
[2019-03-10] MEDS ORDERED: MAGNESIUM SULFATE 1 GM in NACL 0.9% 50 ML IV ONE (08:03)
[2019-03-10 09:24] LABS: Bacteria,Urine 1+ /HPF (Negative); Bilirubin,Urine NEG (Negative); Blood,Urine SM (Negative); Color,Urine Yellow (Yellow); Mucus,Urine FEW /HPF; Urobilinogen,Urine < 2.0 mg/dL (<2.0)
[2019-03-10] MEDS ORDERED: NACL 0.9% 500 ML 500 ML ONE ×2 (09:27→10:30)
[2019-03-10] MEDS ORDERED: KCL 10MEQ/100ML 10 MEQ/100 ML BAG IV ONE (09:28)
[2019-03-10] MEDS ORDERED: REGLAN IV PRN (10:08)
[2019-03-10] MEDS ORDERED: ZOFRAN IV PRN (10:08)
[2019-03-10] MEDS ORDERED: MORPHINE IV PRN (10:08)
[2019-03-10] MEDS ORDERED: SODIUM CHLORIDE FLUSH SYRINGE 10 ML IV PRN (10:08)
[2019-03-10] MEDS ORDERED: TYLENOL PO PRN (10:08)
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
[2019-03-10 11:03] LABS: Band Neutrophils # (Manual) 0.3 K/mm3; Basophils % (Manual) 0 % (0.0-1.8); Eosinophils % (Manual) 0 % (0.0-4.3); Total Cells Counted 100
[2019-03-10 11:09] LABS: Anisocytosis 2+; Hypochromasia 3+
[2019-03-10 11:11] LABS: Platelet Estimate Consistent w Auto
--- NOTE | 2019-03-10 13:18 | Gastroenterology Consultation ---
History of Present Illness - Reason for Consult Consult date: 03/10/19 abdominal pain Requesting physician: SAI FLORES - History of Present Illness Patient is a 29 y/o female with PMH of Crohn's disease with chronic anemia (requiring previous blood transfusions) who presented to ED with multiple complaints to include leg pain, neck/back pain, abdominal pain, fever, and bloody diarrhea. Upon admission she was found to be severely anemic with H/H 5.1/20.2 with Temp 103, tachycardia, and hypotension. Patient is well known to our service with multiple prior hospitalizations over the last few years with similar symptoms with last consult 11/2017 at [facility]. She has a hx of Crohn's disease dx at ~ age 4 and was treated in the early with multiple medications such as remicade, asacol, and prednisone but has been off any medications for her Crohn's since last year (lost to f/u). She also has a hx of C-diff in 2017 that was treated with Flagyl. She underwent a small bowel series that showed TI disease and colonoscopy that showed pancolitis with colonic shortening c/w untreated disease 10/2017. This afternoon she was resting in bed w/o acute distress but ill appearing. Admits to BMs x ~5/day with loose blood (bright red) streaked stool and poor appetite but denies CP, SOB, wt loss, vomiting, hematemesis, melena, or constipation. No recent abx therapy, travel, or known ill contacts. Past History Past Medical History: anemia, other (Crohn's disease) Past Surgical History: No surgical history Social history: lives with family, smoking, full code. denies: alcohol abuse, IV drug use Family history: no significant family history Medications and Allergies Allergies Allergy/AdvReac Type Severity Reaction Status Date / Time No Known Allergies Allergy Verified 06/14/13 00:51 Home Medications Medication Instructions Recorded Confirmed Last Taken Type Cyclobenzaprine [Flexeril] 10 mg PO TID PRN #10 tablet 02/24/19 03/10/19 03/07/19 Rx predniSONE [Deltasone] 20 mg PO DAILY #5 tablet 02/24/19 03/10/19 03/07/19 Rx Active Meds: Active Medications Acetaminophen (Tylenol) 650 mg PO Q4H PRN PRN Reason: Pain MILD(1-3)/Fever >100.5/WHITE Enoxaparin Sodium (Lovenox) 40 mg SUB-Q QDAY SUGAR Sodium Chloride (Nacl 0.9% 1000 Ml) 1,000 mls @ 150 mls/hr IV DIRECT SUGAR Piperacillin Sod/Tazobactam Sod (Zosyn/Ns 3.375gm/50ml) 3.375 gm in 50 mls @ 100 mls/hr IV Q8HR SUGAR; Protocol Stop: 03/14/19 23:59 Metronidazole (Flagyl 500 Mg/100 Ml) 500 mg in 100 mls @ 100 mls/hr IV Q8HR SUGAR; Protocol Metoclopramide HCl (Reglan) 10 mg IV Q6H PRN PRN Reason: Nausea And Vomiting Morphine Sulfate (Morphine) 2 mg IV Q4H PRN PRN Reason: Pain, Moderate (4-6) Ondansetron HCl (Zofran) 4 mg IV Q8H PRN PRN Reason: Nausea And Vomiting Oxycodone/Acetaminophen (Percocet 5/325) 1 tab PO Q6H PRN PRN Reason: Pain, Moderate (4-6) Sodium Chloride (Sodium Chloride Flush Syringe 10 Ml) 10 ml IV BID SUGAR Sodium Chloride (Sodium Chloride Flush Syringe 10 Ml) 10 ml IV PRN PRN PRN Reason: LINE FLUSH medications reviewed/updated as required Review of Systems - Review of Systems All systems: negative Constitutional: poor appetite Gastrointestinal: abdominal pain, diarrhea, BRBPR Exam - Constitutional Vital Signs: Temp Pulse Resp BP Pulse Ox 97.8 F 86 20 101/59 100 03/10/19 13:10 03/10/19 13:10 03/10/19 13:10 03/10/19 13:10 03/10/19 13:10 General appearance: no acute distress, other (thin, ill appearing) - EENT Eyes: PERRL, EOM intact ENT: hearing intact - Respiratory Respiratory effort: normal - Cardiovascular Rhythm: regular - Gastrointestinal General gastrointestinal: Present: soft, tender, non-distended, normal bowel sounds - Neurologic Neurological: alert and oriented x3 - Labs CBC & Chem 7: 03/10/19 05:07 03/10/19 03:51 Lab Results: Laboratory Results - last 24 hr 03/10/19 03/10/19 03/10/19 03:51 03:51 03:51 WBC TNR RBC TNR Hgb TNR Hct TNR MCV TNR MCH TNR MCHC TNR RDW TNR Plt Count TNR Lymph % (Auto) TNR Page % (Auto) TNR Eos % (Auto) TNR Baso % (Auto) TNR Lymph # TNR Page # TNR Eos # TNR Baso # TNR Add Manual Diff TNR Total Counted Seg Neutrophils % TNR Seg Neuts % (Manual) Band Neutrophils % Lymphocytes % (Manual) Reactive Lymphs % (Man) Monocytes % (Manual) Eosinophils % (Manual) Basophils % (Manual) Metamyelocytes % Myelocytes % Promyelocytes % Blast Cells % Nucleated RBC % Seg Neutrophils # TNR Seg Neutrophils # Man Band Neutrophils # Lymphocytes # (Manual) Abs React Lymphs (Man) Monocytes # (Manual) Eosinophils # (Manual) Basophils # (Manual) Metamyelocytes # Myelocytes # Promyelocytes # Blast Cells # WBC Morphology Hypersegmented Neuts Hyposegmented Neuts Hypogranular Neuts Smudge Cells Toxic Granulation Toxic Vacuolation Dohle Bodies Pelger-Huet Anomaly Bridgette Rods Platelet Estimate Clumped Platelets Plt Clumps, EDTA Large Platelets Giant Platelets Platelet Satelliting Plt Morphology Comment RBC Morphology Dimorphic RBCs Polychromasia Hypochromasia Poikilocytosis Anisocytosis Microcytosis Macrocytosis Spherocytes Pappenheimer Bodies Sickle Cells Target Cells Tear Drop Cells Ovalocytes Helmet Cells [place] Bodies [place] Rings [place] Cells Bite Cells Crenated Cell Elliptocytes Acanthocytes (Spur) Rouleaux Hemoglobin C Crystals Schistocytes Malaria parasites [place] Bodies Hem Pathologist Commnt PT 16.8 H INR 1.40 H VBG pH Sodium 131 L Potassium 2.8 L* Chloride 95.7 L Carbon Dioxide 16 L Anion Gap 22 BUN 18 H Creatinine 1.4 H Estimated GFR 53 BUN/Creatinine Ratio 13 Glucose 127 H Lactic Acid Calcium 8.1 L Magnesium Total Bilirubin 0.60 AST 40 ALT 20 Alkaline Phosphatase 69 Total Creatine Kinase Total Protein 8.9 H Albumin 3.8 L Albumin/Globulin Ratio 0.7 HCG, Quant Urine Color Urine Turbidity Urine pH Ur Specific [place] Urine Protein Urine Glucose (UA) Urine Ketones Urine Blood Urine Nitrite Urine Bilirubin Urine Urobilinogen Ur Leukocyte Esterase Urine WBC (Auto) Urine RBC (Auto) U Epithel Cells (Auto) Urine Bacteria (Auto) Urine Mucus Blood Type Antibody Screen Crossmatch 03/10/19 03/10/19 03/10/19 03:51 03:51 05:07 WBC 25.9 H RBC 3.63 L Hgb 5.1 L* Hct 20.2 L MCV 56 L MCH 14 L MCHC 25 L RDW 21.0 H Plt Count 324 Lymph % (Auto) Page % (Auto) Eos % (Auto) Baso % (Auto) Lymph # Page # Eos # Baso # Add Manual Diff Complete Total Counted 100 Seg Neutrophils % Seg Neuts % (Manual) 83.0 H Band Neutrophils % 1.0 Lymphocytes % (Manual) 6.0 L Reactive Lymphs % (Man) 0 Monocytes % (Manual) 10.0 H Eosinophils % (Manual) 0 Basophils % (Manual) 0 Metamyelocytes % 0 Myelocytes % 0 Promyelocytes % 0 Blast Cells % 0 Nucleated RBC % Not Reportable Seg Neutrophils # Seg Neutrophils # Man 21.5 H Band Neutrophils # 0.3 Lymphocytes # (Manual) 1.6 Abs React Lymphs (Man) 0.0 Monocytes # (Manual) 2.6 H Eosinophils # (Manual) 0.0 Basophils # (Manual) 0.0 Metamyelocytes # 0.0 Myelocytes # 0.0 Promyelocytes # 0.0 Blast Cells # 0.0 WBC Morphology Not Reportable Hypersegmented Neuts Not Reportable Hyposegmented Neuts Not Reportable Hypogranular Neuts Not Reportable Smudge Cells Not Reportable Toxic Granulation Not Reportable Toxic Vacuolation Not Reportable Dohle Bodies Not Reportable Pelger-Huet Anomaly Not Reportable Bridgette Rods Not Reportable Platelet Estimate Consistent w auto Clumped Platelets Not Reportable Plt Clumps, EDTA Not Reportable Large Platelets Not Reportable Giant Platelets Not Reportable Platelet Satelliting Not Reportable Plt Morphology Comment Not Reportable RBC Morphology Not Reportable Dimorphic RBCs Not Reportable Polychromasia Not Reportable Hypochromasia 3+ Poikilocytosis Not Reportable Anisocytosis 2+ Microcytosis 2+ Macrocytosis Not Reportable Spherocytes Not Reportable Pappenheimer Bodies Not Reportable Sickle Cells Not Reportable Target Cells Not Reportable Tear Drop Cells Not Reportable Ovalocytes Not Reportable Helmet Cells Not Reportable [place] Bodies Not Reportable [place] Rings Not Reportable [place] Cells Not Reportable Bite Cells Not Reportable Crenated Cell Not Reportable Elliptocytes Not Reportable Acanthocytes (Spur) Not Reportable Rouleaux Not Reportable Hemoglobin C Crystals Not Reportable Schistocytes Not Reportable Malaria parasites Not Reportable [place] Bodies Not Reportable Hem Pathologist Commnt No PT INR VBG pH 7.386 Sodium Potassium Chloride Carbon Dioxide Anion Gap BUN Creatinine Estimated GFR BUN/Creatinine Ratio Glucose Lactic Acid 1.90 Calcium Magnesium Total Bilirubin AST ALT Alkaline Phosphatase Total Creatine Kinase Total Protein Albumin Albumin/Globulin Ratio HCG, Quant Urine Color Urine Turbidity Urine pH Ur Specific [place] Urine Protein Urine Glucose (UA) Urine Ketones Urine Blood Urine Nitrite Urine Bilirubin Urine Urobilinogen Ur Leukocyte Esterase Urine WBC (Auto) Urine RBC (Auto) U Epithel Cells (Auto) Urine Bacteria (Auto) Urine Mucus Blood Type Antibody Screen Crossmatch 03/10/19 03/10/19 03/10/19 05:07 05:48 05:48 WBC RBC Hgb Hct MCV MCH MCHC RDW Plt Count Lymph % (Auto) Page % (Auto) Eos % (Auto) Baso % (Auto) Lymph # Page # Eos # Baso # Add Manual Diff Total Counted Seg Neutrophils % Seg Neuts % (Manual) Band Neutrophils % Lymphocytes % (Manual) Reactive Lymphs % (Man) Monocytes % (Manual) Eosinophils % (Manual) Basophils % (Manual) Metamyelocytes % Myelocytes % Promyelocytes % Blast Cells % Nucleated RBC % Seg Neutrophils # Seg Neutrophils # Man Band Neutrophils # Lymphocytes # (Manual) Abs React Lymphs (Man) Monocytes # (Manual) Eosinophils # (Manual) Basophils # (Manual) Metamyelocytes # Myelocytes # Promyelocytes # Blast Cells # WBC Morphology Hypersegmented Neuts Hyposegmented Neuts Hypogranular Neuts Smudge Cells Toxic Granulation Toxic Vacuolation Dohle Bodies Pelger-Huet Anomaly Bridgette Rods Platelet Estimate Clumped Platelets Plt Clumps, EDTA Large Platelets Giant Platelets Platelet Satelliting Plt Morphology Comment RBC Morphology Dimorphic RBCs Polychromasia Hypochromasia Poikilocytosis Anisocytosis Microcytosis Macrocytosis Spherocytes Pappenheimer Bodies Sickle Cells Target Cells Tear Drop Cells Ovalocytes Helmet Cells [place] Bodies [place] Cells Bite Cells Crenated Cell Elliptocytes Acanthocytes (Spur) Rouleaux Hemoglobin C Crystals Schistocytes Malaria parasites [place] Bodies Hem Pathologist Commnt PT INR VBG pH Sodium Potassium Chloride Carbon Dioxide Anion Gap BUN Creatinine Estimated GFR BUN/Creatinine Ratio Glucose Lactic Acid 1.70 Calcium Magnesium 1.60 L Total Bilirubin AST ALT Alkaline Phosphatase Total Creatine Kinase 164 H Total Protein Albumin Albumin/Globulin Ratio HCG, Quant < 2 Urine Color Urine Turbidity Urine pH Ur Specific [place] Urine Protein Urine Glucose (UA) Urine Ketones Urine Blood Urine Nitrite Urine Bilirubin Urine Urobilinogen Ur Leukocyte Esterase Urine WBC (Auto) Urine RBC (Auto) U Epithel Cells (Auto) Urine Bacteria (Auto) Urine Mucus Blood Type Antibody Screen Crossmatch 03/10/19 03/10/19 05:50 08:20 WBC RBC Hgb Hct MCV MCH MCHC RDW Plt Count Lymph % (Auto) Page % (Auto) Eos % (Auto) Baso % (Auto) Lymph # Page # Eos # Baso # Add Manual Diff Total Counted Seg Neutrophils % Seg Neuts % (Manual) Band Neutrophils % Lymphocytes % (Manual) Reactive Lymphs % (Man) Monocytes % (Manual) Eosinophils % (Manual) Basophils % (Manual) Metamyelocytes % Myelocytes % Promyelocytes % Blast Cells % Nucleated RBC % Seg Neutrophils # Seg Neutrophils # Man Band Neutrophils # Lymphocytes # (Manual) Abs React Lymphs (Man) Monocytes # (Manual) Eosinophils # (Manual) Basophils # (Manual) Metamyelocytes # Myelocytes # Promyelocytes # Blast Cells # WBC Morphology Hypersegmented Neuts Hyposegmented Neuts Hypogranular Neuts Smudge Cells Toxic Granulation Toxic Vacuolation Dohle Bodies Pelger-Huet Anomaly Bridgette Rods Platelet Estimate Clumped Platelets Plt Clumps, EDTA Large Platelets Giant Platelets Platelet Satelliting Plt Morphology Comment RBC Morphology Dimorphic RBCs Polychromasia Hypochromasia Poikilocytosis Anisocytosis Microcytosis Macrocytosis Spherocytes Pappenheimer Bodies Sickle Cells Target Cells Tear Drop Cells Ovalocytes Helmet Cells [place] Bodies [place] Cells Bite Cells Crenated Cell Elliptocytes Acanthocytes (Spur) Rouleaux Hemoglobin C Crystals Schistocytes Malaria parasites [place] Bodies Hem Pathologist Commnt PT INR VBG pH Sodium Potassium Chloride Carbon Dioxide Anion Gap BUN Creatinine Estimated GFR BUN/Creatinine Ratio Glucose Lactic Acid Calcium Magnesium Total Bilirubin AST ALT Alkaline Phosphatase Total Creatine Kinase Total Protein Albumin Albumin/Globulin Ratio HCG, Quant Urine Color Yellow Urine Turbidity Cloudy Urine pH 6.0 Ur Specific [place] 1.016 Urine Protein 30 mg/dl Urine Glucose (UA) Neg Urine Ketones Tr Urine Blood Sm Urine Nitrite Neg Urine Bilirubin Neg Urine Urobilinogen < 2.0 Ur Leukocyte Esterase Lg Urine WBC (Auto) 22.0 H Urine RBC (Auto) 9.0 U Epithel Cells (Auto) 15.0 H Urine Bacteria (Auto) 1+ Urine Mucus Few Blood Type O POSITIVE Antibody Screen Negative Crossmatch See Detail Assessment and Plan 1.Crohns disease 2.acute on chronic anemia 3.abdominal pain 4.bloody diarrhea -afebrile (temp 103 on admission) -WBC 23.9 -abd CT reviewed -HGB 5.1/20.2- currently receiving blood transfusion -continue to monitor H/H and transfuse as needed- hold blood thinning medications -reports chronic intermittent blood streaked stools but no significant acute GI bleeding by history (no hematemesis or melena) -small bowel series 10/2017 showed TI disease -last colonoscopy 10/2017 showed pancolitis with colonic shortening c/w untreated disease -etiology- pt with hx of chronic anemia requiring transfusions due to chronic underlying gastrointestinal losses and iron deficiency 2/2 uncontrolled Crohn's disease (noncompliant with f/u; not taking medications for Crohn's) -no plan for repeat scope at this time -will order stool studies including c-diff (h/o C-diff infection 2017; tx with flagyl x 14d) to r/o infection and d/c steroids for now -if stool negative for infection, okay to resume steroids -start on iron supplement -continue empiric antibiotics -okay for diet as tolerated -continue supportive care -will follow
[2019-03-10] MEDS: NACL 0.9% 1000 ML 1,000 ML IV SCH (13:40)
[2019-03-10] MEDS ORDERED: ZOSYN/NS 3.375GM/50ML 3.375 GM/50 ML BAG IV SCH (14:00)
[2019-03-10] MEDS ORDERED: SOLU-Medrol IV SCH (14:00)
[2019-03-10] MEDS: FLAGYL 500 MG/100 ML 500 MG/100 ML BAG IV SCH ×2 (14:59→21:59)
[2019-03-10 19:29] LABS: Mean Corpuscular HGB Conc 28 % (30-34); Platelet Count 302 K/mm3 (140-440); Red Blood Count 4.06 M/mm3 (3.65-5.03)
[2019-03-10 19:30] LABS: Hematocrit 25.4 % (30.3-42.9); Hemoglobin 7.1 gm/dl (10.1-14.3); Mean Corpuscular Volume 63 fl (79-97); Red Cell Distribution Width 28.5 % (13.2-15.2)
[2019-03-10 21:34] LABS: Band Neutrophils # (Manual) 0.3 K/mm3; Basophils % (Manual) 0 % (0.0-1.8); Eosinophils % (Manual) 0 % (0.0-4.3); Total Cells Counted 100
[2019-03-10 21:35] LABS: Dimorphic RBC Yes; Large Platelets 1+
[2019-03-10 21:36] LABS: Hypochromasia 3+
[2019-03-10 21:37] LABS: Macrocytosis 2+
[2019-03-10 21:38] LABS: Crenated RBC 2+; Target Cells Few
[2019-03-10 21:40] LABS: Platelet Estimate Consistent w Auto
[2019-03-10] MEDS: FEOSOL PO SCH (21:59)
[2019-03-10] MEDS: SODIUM CHLORIDE FLUSH SYRINGE 10 ML IV SCH (22:08)
[2019-03-10] MEDS: ZOSYN/NS 3.375GM/50ML 3.375 GM/50 ML BAG IV SCH (23:26)
[2019-03-11] MEDS: PERCOCET 5/325 PO PRN (03:39)
[2019-03-11] MEDS: ZOSYN/NS 3.375GM/50ML 3.375 GM/50 ML BAG IV SCH ×3 (05:14→21:18)
[2019-03-11 05:56] LABS: Alanine Aminotransferase 23 units/L (7-56); BUN/Creatinine Ratio 23; Blood Urea Nitrogen 16 mg/dL (7-17); Calcium 7.9 mg/dL (8.4-10.2); Hemolysis Index 1
[2019-03-11] MEDS: FLAGYL 500 MG/100 ML 500 MG/100 ML BAG IV SCH ×3 (06:25→21:18)
[2019-03-11] MEDS: SODIUM CHLORIDE FLUSH SYRINGE 10 ML IV SCH ×2 (09:52→21:18)
[2019-03-11] MEDS: FEOSOL PO SCH ×2 (09:52→21:18)
[2019-03-11] MEDS: LOVENOX SUB-Q SCH ×2 (09:52→09:55)
--- NOTE | 2019-03-11 11:24 | Gastroenterology Progress Note ---
Assessment and Plan 1.Crohns disease 2.acute on chronic anemia 3.abdominal pain 4.bloody diarrhea -afebrile (temp 103 on admission) -WBC 16.6-trending down -abd CT reviewed -HGB 7.1/25.4 s/p blood transfusion (5.1/20.2 on admission) -continue to monitor H/H and transfuse as needed- hold blood thinning medications -small bowel series 10/2017 showed TI disease -last colonoscopy 10/2017 showed pancolitis with colonic shortening c/w untreated disease -etiology- pt with hx of chronic anemia requiring transfusions due to chronic underlying gastrointestinal losses and iron deficiency 2/2 uncontrolled Crohn's disease (noncompliant with f/u; not taking medications for Crohn's) -no plan for repeat scope at this time -stool studies including c-diff (h/o C-diff infection 2017; tx with flagyl x 14d) to r/o infection -no recommendations for steroids at this time, okay to resume once infection ruled out -continue iron supplement -continue empiric antibiotics -advance diet as tolerated -continue supportive care -will follow Subjective Date of service: 03/11/19 Principal diagnosis: abdominal pain, Crohn's Interval history: Patient sitting up in bed this am w/o acute distress. Reports feeling better today after blood transfusion. Abd pain improved. No N/v. BM x 2 this am with no blood but remains loose. Tolerating diet. Objective - Constitutional Vitals: Temp Pulse Resp BP Pulse Ox 97.8 F 64 16 112/78 100 03/11/19 03:42 03/11/19 03:42 03/11/19 03:42 03/11/19 03:42 03/11/19 03:42 General appearance: no acute distress, other (thin appearing) - EENT Eyes: PERRL, EOM intact ENT: hearing intact - Respiratory Respiratory effort: normal - Cardiovascular Rhythm: regular - Gastrointestinal General gastrointestinal: Present: soft, tender (slight TTP), non-distended, normal bowel sounds - Neurologic Neurological: alert and oriented x3 - Labs CBC & Chem 7: 03/10/19 18:57 03/11/19 04:19 Labs: Laboratory Results - last 24 hr 03/10/19 03/10/19 03/11/19 05:50 18:57 04:19 WBC 16.6 H RBC 4.06 Hgb 7.1 L Hct 25.4 L MCV 63 L MCH 17 L MCHC 28 L RDW 28.5 H Plt Count 302 Add Manual Diff Complete Total Counted 100 Seg Neuts % (Manual) 94.0 H Band Neutrophils % 2.0 Lymphocytes % (Manual) 2.0 L Reactive Lymphs % (Man) 0 Monocytes % (Manual) 2.0 Eosinophils % (Manual) 0 Basophils % (Manual) 0 Metamyelocytes % 0 Myelocytes % 0 Promyelocytes % 0 Blast Cells % 0 Nucleated RBC % Not Reportable Seg Neutrophils # Man 15.6 H Band Neutrophils # 0.3 Lymphocytes # (Manual) 0.3 L Abs React Lymphs (Man) 0.0 Monocytes # (Manual) 0.3 Eosinophils # (Manual) 0.0 Basophils # (Manual) 0.0 Metamyelocytes # 0.0 Myelocytes # 0.0 Promyelocytes # 0.0 Blast Cells # 0.0 WBC Morphology Not Reportable Hypersegmented Neuts Not Reportable Hyposegmented Neuts Not Reportable Hypogranular Neuts Not Reportable Smudge Cells Not Reportable Toxic Granulation Not Reportable Toxic Vacuolation Not Reportable Dohle Bodies Not Reportable Pelger-Huet Anomaly Not Reportable Bridgette Rods Not Reportable Platelet Estimate Consistent w auto Clumped Platelets Not Reportable Plt Clumps, EDTA Not Reportable Large Platelets 1+ Giant Platelets Not Reportable Platelet Satelliting Not Reportable Plt Morphology Comment Not Reportable RBC Morphology Not Reportable Dimorphic RBCs Yes Polychromasia Not Reportable Hypochromasia 3+ Poikilocytosis Not Reportable Anisocytosis Not Reportable Microcytosis 2+ Macrocytosis 2+ Spherocytes Not Reportable Pappenheimer Bodies Not Reportable Sickle Cells Not Reportable Target Cells Few Tear Drop Cells Not Reportable Ovalocytes Not Reportable Helmet Cells Not Reportable [place] Bodies Not Reportable [place] Rings Not Reportable [place] Cells Not Reportable Bite Cells Not Reportable Crenated Cell 2+ Elliptocytes Not Reportable Acanthocytes (Spur) Not Reportable Rouleaux Not Reportable Hemoglobin C Crystals Not Reportable Schistocytes Not Reportable Malaria parasites Not Reportable [place] Bodies Not Reportable Hem Pathologist Commnt No Sodium 143 D Potassium 3.4 L D Chloride 114.7 H Carbon Dioxide 15 L Anion Gap 17 BUN 16 Creatinine 0.7 Estimated GFR > 60 BUN/Creatinine Ratio 23 Glucose 124 H Calcium 7.9 L Total Bilirubin 0.30 AST 41 H ALT 23 Alkaline Phosphatase 58 Total Protein 7.4 Albumin 3.0 L Albumin/Globulin Ratio 0.7 Crossmatch See Detail
[2019-03-11] MEDS: NACL 0.9% 1000 ML 1,000 ML IV SCH (19:18)
[2019-03-11] MEDS: KCL 10MEQ/100ML 10 MEQ/100 ML BAG IV SCH (22:34)
[2019-03-12] MEDS: PERCOCET 5/325 PO PRN ×2 (00:35→13:27)
--- NOTE | 2019-03-12 02:02 | Progress Note ---
Assessment and Plan - Patient Problems (1) MASSIEL (acute kidney injury) Current Visit: Yes Status: Acute Plan to address problem: Acute kidney injury was secondary to prerenal azotemia and is now corrected with IV volume replacement. (2) Abdominal pain Current Visit: Yes Status: Acute Plan to address problem: Abdominal pain secondary to Crohn's disease has significantly improved. No further bleeding. No further epigastric pain. (3) Acute blood loss anemia Current Visit: Yes Status: Acute Plan to address problem: Patient seem to improve significantly after transfusion. H&H from 5 to currently 7. Will follow up hemoglobin and hematocrit in a.m. No further episode of bleeding no active bleeding at this time. (4) Acute hypokalemia Current Visit: Yes Status: Acute Plan to address problem: Continue to correct hypokalemia. From 2.5 to 3.5 will follow up chemistry in the a.m. can give additional correction by mouth now. Patient tolerating PO well. (5) Sepsis Current Visit: Yes Status: Acute Plan to address problem: Continues to improve with IV antibiotics adequate intravascular volume repletion. Patients fever curve is come down and clinically is much improved. Patient should be able to change to PO antibiotics in a.m. in anticipated discharge soon. (6) Crohns disease Current Visit: No Status: Chronic Plan to address problem: Crohn's disease appears to have remarkably improved. I did discuss with patient the importance of compliance. Patient now has decreased abdominal pain., No blood in the stool. No white cells in stool culture pending. Blood cultures unr emarkable. G.I. following start steroid back after infection ruled out. History Interval history: This is note from March 11, 2019. At 9 am. Was missed. Patient this morning sitting up in bed no acute distress. Pain was very minimal. Patient had bowel movement times to without any blood. Hospitalist Physical - Constitutional Vitals: Temp Pulse Resp BP Pulse Ox 98.2 F 62 18 110/65 100 03/11/19 19:18 03/11/19 19:18 03/11/19 19:18 03/11/19 19:18 03/11/19 19:18 General appearance: Present: no acute distress, well-nourished - EENT Eyes: Present: PERRL, EOM intact ENT: hearing intact, clear oral mucosa, dentition normal - Neck Neck: Present: supple, normal ROM - Respiratory Respiratory effort: normal Respiratory: bilateral: CTA - Cardiovascular Rhythm: regular - Extremities Extremities: no ischemia, pulses intact, pulses symmetrical, No edema, normal temperature, normal color, Full ROM Peripheral Pulses: within normal limits - Abdominal General gastrointestinal: soft, non-tender, non-distended, normal bowel sounds, no hepatomegaly, no splenomegaly, no mass, no hernia - Integumentary Integumentary: Present: clear, warm, dry - Psychiatric Psychiatric: appropriate mood/affect, intact judgment & insight, memory intact - Neurologic Neurologic: CNII-XII intact, moves all extremities Results - Labs CBC & Chem 7: 03/10/19 18:57 03/11/19 04:19 Labs: Laboratory Last Values WBC 16.6 K/mm3 (4.5-11.0) H 03/10/19 18:57 RBC 4.06 M/mm3 (3.65-5.03) 03/10/19 18:57 Hgb 7.1 gm/dl (10.1-14.3) L 03/10/19 18:57 Hct 25.4 % (30.3-42.9) L 03/10/19 18:57 MCV 63 fl (79-97) L 03/10/19 18:57 MCH 17 pg (28-32) L 03/10/19 18:57 MCHC 28 % (30-34) L 03/10/19 18:57 RDW 28.5 % (13.2-15.2) H 03/10/19 18:57 Plt Count 302 K/mm3 (140-440) 03/10/19 18:57 Lymph % (Auto) TNR 03/10/19 03:51 [place] % (Auto) TNR 03/10/19 03:51 Eos % (Auto) TNR 03/10/19 03:51 Baso % (Auto) TNR 03/10/19 03:51 Lymph # TNR 03/10/19 03:51 [place] # TNR 03/10/19 03:51 Eos # TNR 03/10/19 03:51 Baso # TNR 03/10/19 03:51 Add Manual Diff Complete 03/10/19 18:57 Total Counted 100 03/10/19 18:57 Seg Neutrophils % TNR 03/10/19 03:51 Seg Neuts % (Manual) 94.0 % (40.0-70.0) H 03/10/19 18:57 Band Neutrophils % 2.0 % 03/10/19 18:57 Lymphocytes % (Manual) 2.0 % (13.4-35.0) L 03/10/19 18:57 Reactive Lymphs % (Man) 0 % 03/10/19 18:57 Monocytes % (Manual) 2.0 % (0.0-7.3) 03/10/19 18:57 Eosinophils % (Manual) 0 % (0.0-4.3) 03/10/19 18:57 Basophils % (Manual) 0 % (0.0-1.8) 03/10/19 18:57 Metamyelocytes % 0 % 03/10/19 18:57 Myelocytes % 0 % 03/10/19 18:57 Promyelocytes % 0 % 03/10/19 18:57 Blast Cells % 0 % 03/10/19 18:57 Nucleated RBC % Not Reportable 03/10/19 18:57 Seg Neutrophils # TNR 03/10/19 03:51 Seg Neutrophils # Man 15.6 K/mm3 (1.8-7.7) H 03/10/19 18:57 Band Neutrophils # 0.3 K/mm3 03/10/19 18:57 Lymphocytes # (Manual) 0.3 K/mm3 (1.2-5.4) L 03/10/19 18:57 Abs React Lymphs (Man) 0.0 K/mm3 03/10/19 18:57 Monocytes # (Manual) 0.3 K/mm3 (0.0-0.8) 03/10/19 18:57 Eosinophils # (Manual) 0.0 K/mm3 (0.0-0.4) 03/10/19 18:57 Basophils # (Manual) 0.0 K/mm3 (0.0-0.1) 03/10/19 18:57 Metamyelocytes # 0.0 K/mm3 03/10/19 18:57 Myelocytes # 0.0 K/mm3 03/10/19 18:57 Promyelocytes # 0.0 K/mm3 03/10/19 18:57 Blast Cells # 0.0 K/mm3 03/10/19 18:57 WBC Morphology Not Reportable 03/10/19 18:57 Hypersegmented Neuts Not Reportable 03/10/19 18:57 Hyposegmented Neuts Not Reportable 03/10/19 18:57 Hypogranular Neuts Not Reportable 03/10/19 18:57 Smudge Cells Not Reportable 03/10/19 18:57 Toxic Granulation Not Reportable 03/10/19 18:57 Toxic Vacuolation Not Reportable 03/10/19 18:57 Dohle Bodies Not Reportable 03/10/19 18:57 Pelger-Huet Anomaly Not Reportable 03/10/19 18:57 Bridgette Rods Not Reportable 03/10/19 18:57 Platelet Estimate Consistent w auto 03/10/19 18:57 Clumped Platelets Not Reportable 03/10/19 18:57 Plt Clumps, EDTA Not Reportable 03/10/19 18:57 Large Platelets 1+ 03/10/19 18:57 Giant Platelets Not Reportable 03/10/19 18:57 Platelet Satelliting Not Reportable 03/10/19 18:57 Plt Morphology Comment Not Reportable 03/10/19 18:57 RBC Morphology Not Reportable 03/10/19 18:57 Dimorphic RBCs Yes 03/10/19 18:57 Polychromasia Not Reportable 03/10/19 18:57 Hypochromasia 3+ 03/10/19 18:57 Poikilocytosis Not Reportable 03/10/19 18:57 Anisocytosis Not Reportable 03/10/19 18:57 Microcytosis 2+ 03/10/19 18:57 Macrocytosis 2+ 03/10/19 18:57 Spherocytes Not Reportable 03/10/19 18:57 Pappenheimer Bodies Not Reportable 03/10/19 18:57 Sickle Cells Not Reportable 03/10/19 18:57 Target Cells Few 03/10/19 18:57 Tear Drop Cells Not Reportable 03/10/19 18:57 Ovalocytes Not Reportable 03/10/19 18:57 Helmet Cells Not Reportable 03/10/19 18:57 [place] Bodies Not Reportable 03/10/19 18:57 [place] Rings Not Reportable 03/10/19 18:57 [place] Cells Not Reportable 03/10/19 18:57 Bite Cells Not Reportable 03/10/19 18:57 Crenated Cell 2+ 10/16/19 18:57 Elliptocytes Not Reportable 03/10/19 18:57 Acanthocytes (Spur) Not Reportable 03/10/19 18:57 Rouleaux Not Reportable 03/10/19 18:57 Hemoglobin C Crystals Not Reportable 03/10/19 18:57 Schistocytes Not Reportable 03/10/19 18:57 Malaria parasites Not Reportable 03/10/19 18:57 [place] Bodies Not Reportable 03/10/19 18:57 Hem Pathologist Commnt No 03/10/19 18:57 PT 16.8 Sec. (12.2-14.9) H 03/10/19 03:51 INR 1.40 (0.87-1.13) H 03/10/19 03:51 VBG pH 7.386 (7.320-7.420) 03/10/19 03:51 Sodium 143 mmol/L (137-145) D 03/11/19 04:19 Potassium 3.4 mmol/L (3.6-5.0) L D 03/11/19 04:19 Chloride 114.7 mmol/L (98-107) H 03/11/19 04:19 Carbon Dioxide 15 mmol/L (22-30) L 03/11/19 04:19 Anion Gap 17 mmol/L 03/11/19 04:19 BUN 16 mg/dL (7-17) 03/11/19 04:19 Creatinine 0.7 mg/dL (0.7-1.2) 03/11/19 04:19 Estimated GFR > 60 ml/min 03/11/19 04:19 BUN/Creatinine Ratio 23 % 03/11/19 04:19 Glucose 124 mg/dL (65-100) H 03/11/19 04:19 Lactic Acid 1.70 mmol/L (0.7-2.0) 03/10/19 05:48 Calcium 7.9 mg/dL (8.4-10.2) L 03/11/19 04:19 Magnesium 1.60 mg/dL (1.7-2.3) L 03/10/19 05:07 Total Bilirubin 0.30 mg/dL (0.1-1.2) 03/11/19 04:19 AST 41 units/L (5-40) H 03/11/19 04:19 ALT 23 units/L (7-56) 03/11/19 04:19 Alkaline Phosphatase 58 units/L (35-129) 03/11/19 04:19 Total Creatine Kinase 164 units/L (30-135) H 03/10/19 05:07 Total Protein 7.4 g/dL (6.3-8.2) 03/11/19 04:19 Albumin 3.0 g/dL (3.9-5) L 03/11/19 04:19 Albumin/Globulin Ratio 0.7 % 03/11/19 04:19 HCG, Quant < 2 mIU/mL (0-4) 03/10/19 05:48 Urine Color Yellow (Yellow) 03/10/19 08:20 Urine Turbidity Cloudy (Clear) 03/10/19 08:20 Urine pH 6.0 (5.0-7.0) 03/10/19 08:20 Ur Specific [place] 1.016 (1.003-1.030) 03/10/19 08:20 Urine Protein 30 mg/dl mg/dL (Negative) 03/10/19 08:20 Urine Glucose (UA) Neg mg/dL (Negative) 03/10/19 08:20 Urine Ketones Tr mg/dL (Negative) 03/10/19 08:20 Urine Blood Sm (Negative) 03/10/19 08:20 Urine Nitrite Neg (Negative) 03/10/19 08:20 Urine Bilirubin Neg (Negative) 03/10/19 08:20 Urine Urobilinogen < 2.0 mg/dL (<2.0) 03/10/19 08:20 Ur Leukocyte Esterase Lg (Negative) 03/10/19 08:20 Urine WBC (Auto) 22.0 /HPF (0.0-6.0) H 03/10/19 08:20 Urine RBC (Auto) 9.0 /HPF (0.0-6.0) 03/10/19 08:20 U Epithel Cells (Auto) 15.0 /HPF (0-13.0) H 03/10/19 08:20 Urine Bacteria (Auto) 1+ /HPF (Negative) 03/10/19 08:20 Urine Mucus Few /HPF 03/10/19 08:20 Blood Type O POSITIVE 03/10/19 05:50 Antibody Screen Negative 03/10/19 05:50 Crossmatch See Detail 03/10/19 05:50 - Imaging and Cardiology CT scan - abdomen: report reviewed Active Medications - Current Medications Current Medications: Generic Name Dose Route Start Last Admin Trade Name Freq PRN Reason Stop Dose Admin Acetaminophen 650 mg 03/10/19 10:08 Tylenol PO Q4H PRN Pain MILD(1-3)/Fever >100.5/WHITE Enoxaparin Sodium 40 mg 03/11/19 10:00 03/11/19 09:55 Lovenox SUB-Q Not Given QDAY SUGAR Ferrous Sulfate 325 mg 03/10/19 22:00 03/11/19 21:18 Feosol PO 325 mg BID SUGAR Administration Sodium Chloride 1,000 mls @ 150 mls/hr 03/10/19 11:00 03/11/19 19:18 Nacl 0.9% 1000 Ml IV 150 mls/hr DIRECT SUGAR Administration Metronidazole 500 mg in 100 mls @ 100 mls/hr 03/10/19 14:00 03/11/19 21:18 Flagyl 500 Mg/100 Ml IV 100 mls/hr Q8HR SUGAR Administration Protocol Piperacillin Sod/Tazobactam Sod 3.375 gm in 50 mls @ 100 mls/hr 03/10/19 22:00 03/11/19 21:18 Zosyn/Ns 3.375gm/50ml IV 03/14/19 23:59 100 mls/hr Q8HR SUGAR Administration Protocol Metoclopramide HCl 10 mg 03/10/19 10:08 Reglan IV Q6H PRN Nausea And Vomiting Morphine Sulfate 2 mg 03/10/19 10:08 03/10/19 23:08 Morphine IV 2 mg Q4H PRN Administration Pain, Moderate (4-6) Ondansetron HCl 4 mg 03/10/19 10:08 Zofran IV Q8H PRN Nausea And Vomiting Oxycodone/Acetaminophen 1 tab 03/10/19 10:08 03/12/19 00:35 Percocet 5/325 PO 1 tab Q6H PRN Administration Pain, Moderate (4-6) Sodium Chloride 10 ml 03/10/19 22:00 03/11/19 21:18 Sodium Chloride Flush Syringe 10 Ml IV 10 ml BID SUGAR Administration Sodium Chloride 10 ml 03/10/19 10:08 Sodium Chloride Flush Syringe 10 Ml IV PRN PRN LINE FLUSH
[2019-03-12] MEDS: ZOSYN/NS 3.375GM/50ML 3.375 GM/50 ML BAG IV SCH ×2 (06:19→17:20)
[2019-03-12] MEDS: FLAGYL 500 MG/100 ML 500 MG/100 ML BAG IV SCH ×2 (06:19→17:20)
[2019-03-12 06:44] LABS: Mean Corpuscular HGB Conc 27 % (30-34); Platelet Count 261 K/mm3 (140-440); Red Blood Count 3.51 M/mm3 (3.65-5.03)
[2019-03-12 07:05] LABS: Hematocrit 21.9 % (30.3-42.9); Mean Corpuscular Volume 62 fl (79-97); Red Cell Distribution Width 28.4 % (13.2-15.2)
[2019-03-12 08:29] LABS: Anisocytosis 2+; Band Neutrophils # (Manual) 1.8 K/mm3; Basophils % (Manual) 0 % (0.0-1.8); Eosinophils % (Manual) 0 % (0.0-4.3); Hypochromasia 2+; Platelet Estimate Consistent w Auto; Target Cells 1+; Total Cells Counted 100
[2019-03-12] MEDS: FEOSOL PO SCH ×2 (09:19→22:06)
[2019-03-12] MEDS: LOVENOX SUB-Q SCH (09:19)
[2019-03-12] MEDS: SODIUM CHLORIDE FLUSH SYRINGE 10 ML IV SCH ×2 (09:20→22:08)
--- NOTE | 2019-03-12 10:01 | Gastroenterology Progress Note ---
Assessment and Plan 1.Crohns disease 2.acute on chronic anemia 3.abdominal pain 4.bloody diarrhea -afebrile (temp 103 on admission) -WBC 12.7-trending down -abd CT reviewed -HGB 6.0/21.9-trend down (5.1/20.2 on admission)- no active signs of significant bleeding overnight or this am per pt -continue to monitor H/H and transfuse as needed- hold blood thinning medications -small bowel series 10/2017 showed TI disease -last colonoscopy 10/2017 showed pancolitis with colonic shortening c/w untreated disease -etiology- pt with hx of chronic anemia requiring transfusions due to chronic underlying gastrointestinal losses and iron deficiency 2/2 uncontrolled Crohn's disease (noncompliant with f/u; not taking medications for Crohn's) -no plan for repeat scope at this time -stool for c-diff (h/o C-diff infection 2017; tx with flagyl x 14d) still pending to r/o infection with steroid currently on hold -if C-diff positive transition antibiotics to PO Vanco -if C-diff negative okay to resume steroids (would need to be d/c on taper) -continue iron supplement -continue empiric antibiotics -advance diet as tolerated -continue supportive care -patient will need to follow up upon d/c in clinic for further management of Crohn's as outpatient Subjective Date of service: 03/12/19 Principal diagnosis: abdominal pain, Crohn's Interval history: No acute distress. Abd pain improved and N/V now resolved. Requesting for diet to be advanced. Reports continue loose stools but no active signs of bleeding. Objective - Constitutional Vitals: Temp Pulse Resp BP Pulse Ox 97.9 F 77 18 121/80 100 03/12/19 08:19 03/12/19 08:19 03/12/19 08:19 03/12/19 08:19 03/12/19 08:19 General appearance: no acute distress, other (thin appearing) - Respiratory Respiratory effort: normal - Cardiovascular Rhythm: regular - Gastrointestinal General gastrointestinal: Present: soft, tender (slight TTP), non-distended, normal bowel sounds - Neurologic Neurological: alert and oriented x3 - Labs CBC & Chem 7: 03/12/19 06:28 03/11/19 04:19 Labs: Laboratory Results - last 24 hr 03/12/19 06:28 WBC 12.7 H RBC 3.51 L Hgb 6.0 L Hct 21.9 L MCV 62 L MCH 17 L MCHC 27 L RDW 28.4 H Plt Count 261 Add Manual Diff Complete Total Counted 100 Seg Neuts % (Manual) 75.0 H Band Neutrophils % 14.0 Lymphocytes % (Manual) 6.0 L Reactive Lymphs % (Man) 0 Monocytes % (Manual) 5.0 Eosinophils % (Manual) 0 Basophils % (Manual) 0 Metamyelocytes % 0 Myelocytes % 0 Promyelocytes % 0 Blast Cells % 0 Nucleated RBC % Not Reportable Seg Neutrophils # Man 9.5 H Band Neutrophils # 1.8 Lymphocytes # (Manual) 0.8 L Abs React Lymphs (Man) 0.0 Monocytes # (Manual) 0.6 Eosinophils # (Manual) 0.0 Basophils # (Manual) 0.0 Metamyelocytes # 0.0 Myelocytes # 0.0 Promyelocytes # 0.0 Blast Cells # 0.0 WBC Morphology Not Reportable Hypersegmented Neuts Not Reportable Hyposegmented Neuts Not Reportable Hypogranular Neuts Not Reportable Smudge Cells Not Reportable Toxic Granulation Not Reportable Toxic Vacuolation Not Reportable Dohle Bodies Not Reportable Pelger-Huet Anomaly Not Reportable Bridgette Rods Not Reportable Platelet Estimate Consistent w auto Clumped Platelets Not Reportable Plt Clumps, EDTA Not Reportable Large Platelets Not Reportable Giant Platelets Not Reportable Platelet Satelliting Not Reportable Plt Morphology Comment Not Reportable RBC Morphology Not Reportable Dimorphic RBCs Not Reportable Polychromasia Not Reportable Hypochromasia 2+ Poikilocytosis Not Reportable Anisocytosis 2+ Microcytosis 2+ Macrocytosis Not Reportable Spherocytes Not Reportable Pappenheimer Bodies Not Reportable Sickle Cells Not Reportable Target Cells 1+ Tear Drop Cells Not Reportable Ovalocytes Not Reportable Helmet Cells Not Reportable [place] Bodies Not Reportable [place] Rings Not Reportable [place] Cells Not Reportable Bite Cells Not Reportable Crenated Cell Not Reportable Elliptocytes Not Reportable Acanthocytes (Spur) Not Reportable Rouleaux Not Reportable Hemoglobin C Crystals Not Reportable Schistocytes Not Reportable Malaria parasites Not Reportable [place] Bodies Not Reportable Hem Pathologist Commnt No
--- NOTE | 2019-03-12 11:50 | Progress Note ---
Assessment and Plan Assessment and plan: Crohn's disease. Last colonoscopy 10/2017 showed pancolitis with colonic shortening c/w untreated disease. Patient reportedly has been noncompliant and not taking medications. GI with no plans for repeat colonoscopy at this time. Bloody diarrhea. Stool for c-diff (h/o C-diff infection 2017; tx with flagyl x 14d) still pending to r/o infection with steroid currently on hold. If C-diff positive transition antibiotics to PO Vanco. If C-diff negative okay to resume steroids (would need to be d/c on taper) Acute blood loss anemia. Etiology secondary to above. Hemoglobin 6.0. Type and cross and transfuse 2 units PRBCs. Abdominal pain. Etiology secondary to above. Improved. History Interval history: No new issues overnight. Patient reports diarrhea is improved. Hospitalist Physical - Constitutional Vitals: Temp Pulse Resp BP Pulse Ox 97.9 F 77 18 121/80 100 03/12/19 08:19 03/12/19 08:19 03/12/19 08:19 03/12/19 08:19 03/12/19 08:19 General appearance: Present: no acute distress, well-nourished - EENT Eyes: Present: PERRL, EOM intact ENT: hearing intact, clear oral mucosa, dentition normal - Neck Neck: Present: supple, normal ROM - Respiratory Respiratory effort: normal Respiratory: bilateral: CTA - Cardiovascular Rhythm: regular Heart Sounds: Present: S1 & S2. Absent: gallop, rub - Extremities Extremities: no ischemia, No edema, Full ROM - Abdominal General gastrointestinal: soft, non-tender, non-distended, normal bowel sounds - Integumentary Integumentary: Present: clear, warm, dry - Neurologic Neurologic: CNII-XII intact, moves all extremities Results - Labs CBC & Chem 7: 03/12/19 06:28 03/11/19 04:19 Labs: Laboratory Last Values WBC 12.7 K/mm3 (4.5-11.0) H 03/12/19 06:28 RBC 3.51 M/mm3 (3.65-5.03) L 03/12/19 06:28 Hgb 6.0 gm/dl (10.1-14.3) L 03/12/19 06:28 Hct 21.9 % (30.3-42.9) L 03/12/19 06:28 MCV 62 fl (79-97) L 03/12/19 06:28 MCH 17 pg (28-32) L 03/12/19 06:28 MCHC 27 % (30-34) L 03/12/19 06:28 RDW 28.4 % (13.2-15.2) H 03/12/19 06:28 Plt Count 261 K/mm3 (140-440) 03/12/19 06:28 Lymph % (Auto) TNR 03/10/19 03:51 [place] % (Auto) TNR 03/10/19 03:51 Eos % (Auto) TNR 03/10/19 03:51 Baso % (Auto) TNR 03/10/19 03:51 Lymph # TNR 03/10/19 03:51 [place] # TNR 03/10/19 03:51 Eos # TNR 03/10/19 03:51 Baso # TNR 03/10/19 03:51 Add Manual Diff Complete 03/12/19 06:28 Total Counted 100 03/12/19 06:28 Seg Neutrophils % TNR 03/10/19 03:51 Seg Neuts % (Manual) 75.0 % (40.0-70.0) H 03/12/19 06:28 Band Neutrophils % 14.0 % 03/12/19 06:28 Lymphocytes % (Manual) 6.0 % (13.4-35.0) L 03/12/19 06:28 Reactive Lymphs % (Man) 0 % 03/12/19 06:28 Monocytes % (Manual) 5.0 % (0.0-7.3) 03/12/19 06:28 Eosinophils % (Manual) 0 % (0.0-4.3) 03/12/19 06:28 Basophils % (Manual) 0 % (0.0-1.8) 03/12/19 06:28 Metamyelocytes % 0 % 03/12/19 06:28 Myelocytes % 0 % 03/12/19 06:28 Promyelocytes % 0 % 03/12/19 06:28 Blast Cells % 0 % 03/12/19 06:28 Nucleated RBC % Not Reportable 03/12/19 06:28 Seg Neutrophils # TNR 03/10/19 03:51 Seg Neutrophils # Man 9.5 K/mm3 (1.8-7.7) H 03/12/19 06:28 Band Neutrophils # 1.8 K/mm3 03/12/19 06:28 Lymphocytes # (Manual) 0.8 K/mm3 (1.2-5.4) L 03/12/19 06:28 Abs React Lymphs (Man) 0.0 K/mm3 03/12/19 06:28 Monocytes # (Manual) 0.6 K/mm3 (0.0-0.8) 03/12/19 06:28 Eosinophils # (Manual) 0.0 K/mm3 (0.0-0.4) 03/12/19 06:28 Basophils # (Manual) 0.0 K/mm3 (0.0-0.1) 03/12/19 06:28 Metamyelocytes # 0.0 K/mm3 03/12/19 06:28 Myelocytes # 0.0 K/mm3 03/12/19 06:28 Promyelocytes # 0.0 K/mm3 03/12/19 06:28 Blast Cells # 0.0 K/mm3 03/12/19 06:28 WBC Morphology Not Reportable 03/12/19 06:28 Hypersegmented Neuts Not Reportable 03/12/19 06:28 Hyposegmented Neuts Not Reportable 03/12/19 06:28 Hypogranular Neuts Not Reportable 03/12/19 06:28 Smudge Cells Not Reportable 03/12/19 06:28 Toxic Granulation Not Reportable 03/12/19 06:28 Toxic Vacuolation Not Reportable 03/12/19 06:28 Dohle Bodies Not Reportable 03/12/19 06:28 Pelger-Huet Anomaly Not Reportable 03/12/19 06:28 Bridgette Rods Not Reportable 03/12/19 06:28 Platelet Estimate Consistent w auto 03/12/19 06:28 Clumped Platelets Not Reportable 03/12/19 06:28 Plt Clumps, EDTA Not Reportable 03/12/19 06:28 Large Platelets Not Reportable 03/12/19 06:28 Giant Platelets Not Reportable 03/12/19 06:28 Platelet Satelliting Not Reportable 03/12/19 06:28 Plt Morphology Comment Not Reportable 03/12/19 06:28 RBC Morphology Not Reportable 03/12/19 06:28 Dimorphic RBCs Not Reportable 03/12/19 06:28 Polychromasia Not Reportable 03/12/19 06:28 Hypochromasia 2+ 03/12/19 06:28 Poikilocytosis Not Reportable 03/12/19 06:28 Anisocytosis 2+ 03/12/19 06:28 Microcytosis 2+ 03/12/19 06:28 Macrocytosis Not Reportable 03/12/19 06:28 Spherocytes Not Reportable 03/12/19 06:28 Pappenheimer Bodies Not Reportable 03/12/19 06:28 Sickle Cells Not Reportable 03/12/19 06:28 Target Cells 1+ 03/12/19 06:28 Tear Drop Cells Not Reportable 03/12/19 06:28 Ovalocytes Not Reportable 03/12/19 06:28 Helmet Cells Not Reportable 03/12/19 06:28 [place] Bodies Not Reportable 03/12/19 06:28 [place] Rings Not Reportable 03/12/19 06:28 Mann Cells Not Reportable 03/12/19 06:28 Bite Cells Not Reportable 03/12/19 06:28 Crenated Cell Not Reportable 03/12/19 06:28 Elliptocytes Not Reportable 03/12/19 06:28 Acanthocytes (Spur) Not Reportable 03/12/19 06:28 Rouleaux Not Reportable 03/12/19 06:28 Hemoglobin C Crystals Not Reportable 03/12/19 06:28 Schistocytes Not Reportable 03/12/19 06:28 Malaria parasites Not Reportable 03/12/19 06:28 [place] Bodies Not Reportable 03/12/19 06:28 Hem Pathologist Commnt No 03/12/19 06:28 PT 16.8 Sec. (12.2-14.9) H 03/10/19 03:51 INR 1.40 (0.87-1.13) H 03/10/19 03:51 VBG pH 7.386 (7.320-7.420) 03/10/19 03:51 Sodium 143 mmol/L (137-145) D 03/11/19 04:19 Potassium 3.4 mmol/L (3.6-5.0) L D 03/11/19 04:19 Chloride 114.7 mmol/L (98-107) H 03/11/19 04:19 Carbon Dioxide 15 mmol/L (22-30) L 03/11/19 04:19 Anion Gap 17 mmol/L 03/11/19 04:19 BUN 16 mg/dL (7-17) 03/11/19 04:19 Creatinine 0.7 mg/dL (0.7-1.2) 03/11/19 04:19 Estimated GFR > 60 ml/min 03/11/19 04:19 BUN/Creatinine Ratio 23 % 03/11/19 04:19 Glucose 124 mg/dL (65-100) H 03/11/19 04:19 Lactic Acid 1.70 mmol/L (0.7-2.0) 03/10/19 05:48 Calcium 7.9 mg/dL (8.4-10.2) L 03/11/19 04:19 Magnesium 1.60 mg/dL (1.7-2.3) L 03/10/19 05:07 Total Bilirubin 0.30 mg/dL (0.1-1.2) 03/11/19 04:19 AST 41 units/L (5-40) H 03/11/19 04:19 ALT 23 units/L (7-56) 03/11/19 04:19 Alkaline Phosphatase 58 units/L (35-129) 03/11/19 04:19 Total Creatine Kinase 164 units/L (30-135) H 03/10/19 05:07 Total Protein 7.4 g/dL (6.3-8.2) 03/11/19 04:19 Albumin 3.0 g/dL (3.9-5) L 03/11/19 04:19 Albumin/Globulin Ratio 0.7 % 03/11/19 04:19 HCG, Quant < 2 mIU/mL (0-4) 03/10/19 05:48 Urine Color Yellow (Yellow) 03/10/19 08:20 Urine Turbidity Cloudy (Clear) 03/10/19 08:20 Urine pH 6.0 (5.0-7.0) 03/10/19 08:20 Ur Specific [place] 1.016 (1.003-1.030) 03/10/19 08:20 Urine Protein 30 mg/dl mg/dL (Negative) 03/10/19 08:20 Urine Glucose (UA) Neg mg/dL (Negative) 03/10/19 08:20 Urine Ketones Tr mg/dL (Negative) 03/10/19 08:20 Urine Blood Sm (Negative) 03/10/19 08:20 Urine Nitrite Neg (Negative) 03/10/19 08:20 Urine Bilirubin Neg (Negative) 03/10/19 08:20 Urine Urobilinogen < 2.0 mg/dL (<2.0) 03/10/19 08:20 Ur Leukocyte Esterase Lg (Negative) 03/10/19 08:20 Urine WBC (Auto) 22.0 /HPF (0.0-6.0) H 03/10/19 08:20 Urine RBC (Auto) 9.0 /HPF (0.0-6.0) 03/10/19 08:20 U Epithel Cells (Auto) 15.0 /HPF (0-13.0) H 03/10/19 08:20 Urine Bacteria (Auto) 1+ /HPF (Negative) 03/10/19 08:20 Urine Mucus Few /HPF 03/10/19 08:20 C. difficile Tox (PCR) Negative (Negative) 03/10/19 13:16 Blood Type O POSITIVE 03/10/19 05:50 Antibody Screen Negative 03/10/19 05:50 Crossmatch See Detail 03/10/19 05:50 Active Medications - Current Medications Current Medications: Generic Name Dose Route Start Last Admin Trade Name Freq PRN Reason Stop Dose Admin Acetaminophen 650 mg 03/10/19 10:08 Tylenol PO Q4H PRN Pain MILD(1-3)/Fever >100.5/WHITE Enoxaparin Sodium 40 mg 03/11/19 10:00 03/12/19 09:19 Lovenox SUB-Q Not Given QDAY SUGAR Ferrous Sulfate 325 mg 03/10/19 22:00 03/12/19 09:19 Feosol PO 325 mg BID SUGAR Administration Sodium Chloride 1,000 mls @ 150 mls/hr 03/10/19 11:00 03/11/19 19:18 Nacl 0.9% 1000 Ml IV 150 mls/hr DIRECT SGUAR Administration Metronidazole 500 mg in 100 mls @ 100 mls/hr 03/10/19 14:00 03/12/19 06:19 Flagyl 500 Mg/100 Ml IV 100 mls/hr Q8HR SUGAR Administration Protocol Piperacillin Sod/Tazobactam Sod 3.375 gm in 50 mls @ 100 mls/hr 03/10/19 22:00 03/12/19 06:19 Zosyn/Ns 3.375gm/50ml IV 03/14/19 23:59 100 mls/hr Q8HR SUGAR Administration Protocol Metoclopramide HCl 10 mg 03/10/19 10:08 Reglan IV Q6H PRN Nausea And Vomiting Morphine Sulfate 2 mg 03/10/19 10:08 03/10/19 23:08 Morphine IV 2 mg Q4H PRN Administration Pain, Moderate (4-6) Ondansetron HCl 4 mg 03/10/19 10:08 Zofran IV Q8H PRN Nausea And Vomiting Oxycodone/Acetaminophen 1 tab 03/10/19 10:08 03/12/19 00:35 Percocet 5/325 PO 1 tab Q6H PRN Administration Pain, Moderate (4-6) Sodium Chloride 10 ml 03/10/19 22:00 03/12/19 09:20 Sodium Chloride Flush Syringe 10 Ml IV 10 ml BID SUGAR Administration Sodium Chloride 10 ml 03/10/19 10:08 Sodium Chloride Flush Syringe 10 Ml IV PRN PRN LINE FLUSH
[2019-03-12] MEDS ORDERED: NACL 0.9% 500 ML 500 ML IV SCH (11:56)
[2019-03-12] MEDS ORDERED: DELTASONE PO SCH (15:00)
[2019-03-12 21:04] LABS: Hematocrit 33.5 % (30.3-42.9); Hemoglobin 9.6 gm/dl (10.1-14.3)
[2019-03-13] MEDS: FLAGYL 500 MG/100 ML 500 MG/100 ML BAG IV SCH ×2 (00:54→07:15)
[2019-03-13] MEDS: ZOSYN/NS 3.375GM/50ML 3.375 GM/50 ML BAG IV SCH ×2 (00:54→07:15)
[2019-03-13] MEDS: PERCOCET 5/325 PO PRN ×2 (01:01→09:30)
[2019-03-13] MEDS: NACL 0.9% 1000 ML 1,000 ML IV SCH (01:01)
--- NOTE | 2019-03-13 08:39 | Gastroenterology Progress Note ---
Assessment and Plan - Patient Problems (1) Crohns disease Current Visit: No Status: Chronic Plan to address problem: - Stool studies (culture and C diff) negative. - Anemia improved and no gross bleeding after transfusion (?if also due to menstrual losses; has a hx of chronic anemia). - Complicated by noncompliance with medications and f/u in the clinic. - Will convert prednisone to 20mg/day, and OK to d/c home with a 30 days supply with this. - Advance diet, and d/c zosyn/flagyl. - MVI daily therapy for severe anemia. - OK to d/c home. Will sign off. Please call if needed. Subjective Date of service: 03/13/19 Principal diagnosis: Crohns Interval history: The patient had 3 BMs yesterday, still loose, but no bleeding. She is taking some of her PO intake. She has rec'd PRBC without itching or pain. Objective - Constitutional Vitals: Temp Pulse Resp BP Pulse Ox 98.3 F 59 L 18 109/76 100 03/13/19 04:05 03/13/19 08:19 03/13/19 08:19 03/13/19 08:19 03/13/19 08:19 General appearance: no acute distress - Respiratory Respiratory effort: normal Respiratory: bilateral: CTA - Cardiovascular Rhythm: regular Heart Sounds: Present: S1 & S2 - Gastrointestinal General gastrointestinal: Present: soft, non-tender, non-distended - Labs CBC & Chem 7: 03/12/19 19:36 03/11/19 04:19 Labs: Laboratory Results - last 24 hr 03/10/19 03/10/19 03/12/19 05:50 13:16 19:36 Hgb 9.6 L D Hct 33.5 D C. difficile Tox (PCR) Negative Blood Type O POSITIVE Antibody Screen Negative Crossmatch See Detail
[2019-03-13] MEDS: SODIUM CHLORIDE FLUSH SYRINGE 10 ML IV SCH (09:31)
[2019-03-13] MEDS: LOVENOX SUB-Q SCH (09:32)
[2019-03-13] MEDS ORDERED: DELTASONE PO SCH (10:00)
[2019-03-13] MEDS ORDERED: THERAGRAN-M Tab PO SCH (10:00)
--- NOTE | 2019-03-13 10:18 | Discharge Summary ---
Providers - Providers Date of Admission: 03/10/19 08:31 Date of discharge: 03/13/19 Attending physician: TJ COOPER 03/10/19 10:08 Consult to Physician [CONS] Routine Comment: Consulting Provider: JORGE LONDONO Physician Instructions: Reason For Exam: abdominal ain Primary care physician: VISUAL MERCHANDISING COORDINATOR Hospitalization Reason for admission: abd pain, bloody diarrhea Condition: Stable Hospital course: Patient is a 29 y/o female with PMH of Crohn's disease with chronic anemia (requiring previous blood transfusions) who presented to ED with multiple complaints to include abdominal pain, fever and bloody diarrhea. Upon admission, she was found to be severely anemic with H/H 5.1/20.2 with Temp 103, tachycardia, and hypotension. She has a hx of Crohn's disease dx at ~ age 4 and was treated in the early 1999s with multiple medications such as remicade, asacol, and prednisone but has been off any medications for her Crohn's since last year (lost to f/u). She also has a hx of C-diff in 2017 that was treated with Flagyl. She underwent a small bowel series that showed TI disease and colonoscopy that showed pancolitis with colonic shortening c/w untreated disease 10/2017. Patient reported loose blood (bright red) streaked stool and poor appetite but denied CP, SOB, wt loss, vomiting, hematemesis, melena, or constipation. No recent abx therapy, travel, or known ill contacts. The patient was admitted with diagnosis of Crohn's disease exacerbation, acute on chronic anemia, abdominal pain, SIRS, MASSIEL and bloody diarrhea/GI bleed. The patient was treated empirically with Zosyn and Flagyl for SIRS. The acute kidney injury was felt to be secondary to vasomotor nephropathy and was creatinine was 1.4 and returned to normal range prior to discharge and 0.7. Patient received a total of 3 units PRBCs for the anemia which improved and had no further gross bleeding after transfusion. Stool studies were completed and found to be culture and C. difficile negative. The patient was seen by GI in consultation who recommended that patient be treated with steroids which was later converted to prednisone 20 mg daily at the time of discharge. Patient also should receive MVI daily therapy for severe anemia. Patient also was counseled with medical compliance. Patient is felt to have received maximal hospital benefit and will be discharged home. Dedicated discharge time 35 minutes. Disposition: DC-01 TO HOME OR SELFCARE Time spent for discharge: 35 - Discharge Diagnoses (1) SIRS (systemic inflammatory response syndrome) Status: Acute (2) MASSIEL (acute kidney injury) Status: Acute (3) Abdominal pain Status: Acute (4) Acute blood loss anemia Status: Acute (5) Acute hypokalemia Status: Acute (6) Hypomagnesemia Status: Acute (7) Non-compliance Status: Acute (8) Crohns disease Status: Chronic (9) Vasomotor nephropathy Status: Acute (10) GI bleed Status: Acute Core Measure Documentation - Palliative Care Palliative Care/ Comfort Measures: Not Applicable - Core Measures Any of the following diagnoses?: none Exam - Constitutional Vitals: Temp Pulse Resp BP Pulse Ox 98.3 F 59 L 2 L 109/76 100 03/13/19 04:05 03/13/19 08:19 03/13/19 09:30 03/13/19 08:19 03/13/19 08:19 General appearance: Present: no acute distress, well-nourished - EENT Eyes: Present: PERRL ENT: hearing intact, clear oral mucosa - Neck Neck: Present: supple, normal ROM - Respiratory Respiratory effort: normal Respiratory: bilateral: CTA - Cardiovascular Heart Sounds: Present: S1 & S2. Absent: rub, click - Extremities Extremities: pulses symmetrical, No edema Peripheral Pulses: within normal limits - Abdominal General gastrointestinal: Present: soft, non-tender, non-distended, normal bowel sounds Female genitourinary: Present: normal - Integumentary Integumentary: Present: clear, warm, dry - Musculoskeletal Musculoskeletal: gait normal, strength equal bilaterally - Psychiatric Psychiatric: appropriate mood/affect, intact judgment & insight - Neurologic Neurologic: CNII-XII intact, moves all extremities Plan Activity: advance as tolerated Weight Bearing Status: Weight Bear as Tolerated Diet: regular Follow up with: PRIMARY CAREMD [Primary Care Provider] - 3-5 Days JHON ESCOTO MD [Staff Physician] - 7 Days Prescriptions: predniSONE [Deltasone] 20 mg PO QDAY #30 tablet Cyclobenzaprine [Flexeril 10 MG TAB] 10 mg PO TID PRN #10 tablet PRN Reason: Muscle Spasm Multivitamin Tab W-MINERAL [Multiple Vitamin/Mineral (Theragran M)] 1 each PO QDAY #30 tablet oxyCODONE /ACETAMINOPHEN [Percocet 5/325 mg] 1 tab PO Q6H PRN #14 tablet PRN Reason: Pain, Moderate (4-6)
[2019-03-13 11:26] VITALS: BP 127/86
== END 2019-03-13 15:30 | disposition home or self-care (01) | DRG 871 ==
LOC: ED 03:23 → 4A 08:31
PROVIDERS: ADMIT Internal Medicine; ATTEND Hospitalist
PROC: 30233N1 Transfusion of Nonautologous Red Blood Cells into Peripheral Vein, Percutaneous Approach (ICD-10-PCS; principal; 2019-03-10)
DX: A41.9 Sepsis, unspecified organism (principal); N17.0 Acute kidney failure with tubular necrosis; D62 Acute posthemorrhagic anemia; K50.918 Crohn's disease, unspecified, with other complication; K92.2 Gastrointestinal hemorrhage, unspecified; E87.6 Hypokalemia; F17.200 Nicotine dependence, unspecified, uncomplicated; E83.42 Hypomagnesemia; E86.0 Dehydration; Z91.14 Patient's other noncompliance with medication regimen
CPT/HCPCS: 36415; 71045; 74177; 80053; 81001; 82140; 82270; 82550; 82805; 83735; 84702; 85007; 85014; 85018; 85025; 85610; 86850; 86900; 86901; 86920; 87040; 87045; 87086; 87493; 93005; 93010; 96361; 96374; 96375; G0378; J1650; J2270; J2405; J2543; J2930; J3475; J3480; J7030; J7040; J7512; P9016; Q0162; Q9967

== ENCOUNTER 2019-05-11 11:23 | Emergency (ER) | payer MEDICAID ==
[2019-05-11 12:47] VITALS: BP 112/79
--- NOTE | 2019-05-11 12:51 | Event Note ---
ED Screening Note Date of service: 05/11/19 Time: 12:49 ED Screening Note: Pt c/o of her Crohn's acting up. C/o loose stools, rectal pain and hemorrhoids. States her stool cbc This initial assessment/diagnostic orders/clinical plan/treatment(s) is/are subject to change based on patients health status, clinical progression and re- assessment by fellow clinical providers in the ED. Further treatment and workup at subsequent clinical providers discretion. Patient/guardian urged not to elope from the ED as their condition may be serious if not clinically assessed and managed. Initial orders include: cbc cmp ua
[2019-05-11] MEDS ORDERED: KETOROLAC 30 MG/1 ML INJ IM ONE (13:19)
--- NOTE | 2019-05-11 13:20 | Emergency Department Report ---
ED Abdominal Pain HPI - General Chief Complaint: Rectal Pain Stated Complaint: Hemorrhoid Time Seen by Provider: 05/11/19 12:46 Source: patient Mode of arrival: Ambulatory Limitations: No Limitations - History of Present Illness Initial Comments: This is a 29-year-old female who presents to the emergency room with rectal pain for 4 days. Past medical history of Crohn's, anemia, and hemorrhoids. Patient states she started having a Crohn's flare 4-5 days ago and started taking prednisone. Patient states the prednisone is controlling problems player but she continues to have excruciating rectal pain from hemorrhoids. She also reports menstrual cycle starting 05/10/2019 which is adding to discomfort. She denies tarry stools, vomiting, urinary frequency, urgency, dysuria, fever, dizziness, or chest pain. MD Complaint: abdominal pain Onset/Timin -: days(s) Radiation: none Migration to: other (rectal pain) Severity: severe Severity scale (0 -10): 10 Quality: aching Consistency: constant Improves With: nothing Worsens With: movement, other (considering) Associated Symptoms: diarrhea. denies: nausea, vomiting, fever, chills, constipation, dysuria, hematemesis, hematochezia, melena, hematuria, anorexia, syncope - Related Data LMP Date: 05/10/19 Previous Rx's Medication Instructions Recorded Last Taken Type predniSONE [Deltasone] 20 mg PO DAILY #5 tablet 02/24/19 03/07/19 Rx Cyclobenzaprine [Flexeril 10 MG 10 mg PO TID PRN #10 tablet 03/13/19 Unknown Rx TAB] Multivitamin Tab W-MINERAL 1 each PO QDAY #30 tablet 03/13/19 Unknown Rx [Multiple Vitamin/Mineral (Theragran M)] oxyCODONE /ACETAMINOPHEN [Percocet 1 tab PO Q6H PRN #14 tablet 03/13/19 Unknown Rx 5/325 mg] Hydrocortisone [Hydrocortisone 30 gm RC BID #14 cream.appl 05/11/19 Unknown Rx 2.5% RECTAL CREAM] Pramoxine HCl [Proctofoam] 5 applic TP QID #1 foam 05/11/19 Unknown Rx predniSONE [Deltasone] 20 mg PO QDAY #30 tablet 05/11/19 Unknown Rx Allergies Allergy/AdvReac Type Severity Reaction Status Date / Time No Known Allergies Allergy Verified 06/14/13 00:51 ED Review of Systems ROS: Stated complaint: Hemorrhoid Other details as noted in HPI Constitutional: denies: chills, fever Respiratory: denies: cough, shortness of breath, wheezing Cardiovascular: denies: chest pain, palpitations Gastrointestinal: diarrhea, other (rectal pain). denies: abdominal pain, nausea, vomiting Genitourinary: denies: urgency, dysuria, discharge Musculoskeletal: denies: back pain, joint swelling, arthralgia Skin: denies: rash, lesions Neurological: denies: headache, weakness, paresthesias ED Past Medical Hx - Past Medical History Previous Medical History?: Yes Hx Hypertension: No Hx Congestive Heart Failure: No Hx Diabetes: No Hx Deep Vein Thrombosis: No Hx Renal Disease: No Hx Sickle Cell Disease: No Hx Seizures: No Hx Asthma: No Hx COPD: No Hx HIV: No Additional medical history: crohn's and anemia - Surgical History Past Surgical History?: No - Social History Smoking Status: Current Some Day Smoker Substance Use Type: None - Medications Home Medications: Home Medications Medication Instructions Recorded Confirmed Last Taken Type predniSONE [Deltasone] 20 mg PO DAILY #5 tablet 02/24/19 03/10/19 03/07/19 Rx Cyclobenzaprine [Flexeril 10 MG 10 mg PO TID PRN #10 tablet 03/13/19 Unknown Rx TAB] Multivitamin Tab W-MINERAL 1 each PO QDAY #30 tablet 03/13/19 Unknown Rx [Multiple Vitamin/Mineral (Theragran M)] oxyCODONE /ACETAMINOPHEN [Percocet 1 tab PO Q6H PRN #14 tablet 03/13/19 Unknown Rx 5/325 mg] Hydrocortisone [Hydrocortisone 30 gm RC BID #14 cream.appl 05/11/19 Unknown Rx 2.5% RECTAL CREAM] Pramoxine HCl [Proctofoam] 5 applic TP QID #1 foam 05/11/19 Unknown Rx predniSONE [Deltasone] 20 mg PO QDAY #30 tablet 05/11/19 Unknown Rx ED Physical Exam - General Limitations: No Limitations General appearance: alert, in no apparent distress - Respiratory Respiratory exam: Present: normal lung sounds bilaterally. Absent: respiratory distress - Cardiovascular Cardiovascular Exam: Present: regular rate, normal rhythm. Absent: systolic murmur, diastolic murmur, rubs, gallop - GI/Abdominal GI/Abdominal exam: Present: soft, normal bowel sounds. Absent: distended, tenderness, guarding, rebound, rigid, organomegaly, mass, bruit, pulsatile mass, hernia - Rectal Rectal exam: Present: hemorrhoids (external, TTP), tenderness. Absent: heme (-) stool, mass - Back Exam Back exam: Absent: CVA tenderness (R), CVA tenderness (L) - Neurological Exam Neurological exam: Present: alert, oriented X3, normal gait - Psychiatric Psychiatric exam: Present: normal affect, normal mood - Skin Skin exam: Present: warm, dry, intact, normal color. Absent: rash ED Course Vital Signs 05/11/19 05/11/19 12:43 13:34 Temperature 98.8 F Pulse Rate 104 H Respiratory 16 18 Rate Blood Pressure 112/79 O2 Sat by Pulse 100 Oximetry ED Medical Decision Making - Lab Data Result diagrams: 05/11/19 13:16 05/11/19 13:16 Lab Results 05/11/19 05/11/19 05/11/19 Range/Units 13:16 13:16 14:10 WBC 12.8 H (4.5-11.0) K/mm3 RBC 4.36 (3.65-5.03) M/mm3 Hgb 9.8 L (10.1-14.3) gm/dl Hct 31.6 (30.3-42.9) % MCV 73 L (79-97) fl MCH 22 L (28-32) pg MCHC 31 (30-34) % RDW 25.2 H (13.2-15.2) % Plt Count 501 H (140-440) K/mm3 Sodium 136 L (137-145) mmol/L Potassium 3.5 L (3.6-5.0) mmol/L Chloride 96.2 L (98-107) mmol/L Carbon Dioxide 21 L (22-30) mmol/L Anion Gap 22 mmol/L BUN 11 (7-17) mg/dL Creatinine 0.4 L (0.7-1.2) mg/dL Estimated GFR > 60 ml/min BUN/Creatinine Ratio 28 % Glucose 100 (65-100) mg/dL Calcium 9.5 (8.4-10.2) mg/dL Total Bilirubin 0.20 (0.1-1.2) mg/dL AST 12 (5-40) units/L ALT 6 L (7-56) units/L Alkaline Phosphatase 63 (35-129) units/L Total Protein 8.5 H (6.3-8.2) g/dL Albumin 4.0 (3.9-5) g/dL Albumin/Globulin Ratio 0.9 % Urine Color Red (Yellow) Urine Turbidity Cloudy (Clear) Urine pH 5.0 (5.0-7.0) Ur Specific [place] 1.026 (1.003-1.030) Urine Protein 100 mg/dl (Negative) mg/dL Urine Glucose (UA) Neg (Negative) mg/dL Urine Ketones Tr (Negative) mg/dL Urine Blood Lg (Negative) Urine Nitrite Neg (Negative) Ur Reducing Substances Not Reportable Urine Bilirubin Neg (Negative) Urine Ictotest Not Reportable Urine Urobilinogen < 2.0 (<2.0) mg/dL Ur Leukocyte Esterase Mod (Negative) Urine WBC (Auto) 171.0 H (0.0-6.0) /HPF Urine RBC (Auto) > 182.0 (0.0-6.0) /HPF U Epithel Cells (Auto) 6.0 (0-13.0) /HPF Urine Bacteria (Auto) 3+ (Negative) /HPF Urine WBC Clumps 2+ /HPF Urine Mucus 3+ /HPF Urine Yeast (Budding) 2+ /HPF Urine Sperm 1+ (MILL FEEDER) /HPF - Medical Decision Making This is a 29 y.o. female that presents with rectal pain for 4 days. Currently taking prednisone for Crohn's flare and requesting refills. Patient is stable and was examined by me. Vitals stable. Past medical history of Crohn's disease, anemia, and hemorrhoids. Obtained CMP, CBC, & UA. External hemorrhoids palpated on rectal exam, negative for thrombosed. Given analgesics for pain. Large amount of blood, Leukocyte esterase, and elevated WBCs on urinalysis. Patient is currently on menses. Hypokalemia. Given Klor-Con 40 mEq by mouth once and topical lidocaine applied. Start Proctofoam, prednisone, hydrocortisone suppositories. Patient instructed to follow up with her motor block mechanic Dr. Ledesma. Discussed plan with patient and agreed to plan. No further questions noted by the patient. Discharged home in stable condition. Follow up with PCP in 2-3 days. Critical care attestation.: If time is entered above; I have spent that time in minutes in the direct care of this critically ill patient, excluding procedure time. ED Disposition Clinical Impression: External hemorrhoids, Perianal pain, Medication refill Disposition: TO HOME OR SELFCARE Is pt being admited?: No Condition: Stable Instructions: Hemorrhoids (ED) Additional Instructions: Increase fiber intake with foods and/or metamucil. Increase water intake and drink or eat prunes. Take colace daily to soften stool. Apply Proctofoam 4 times a day for comfort. Follow up with primary care doctor and motor block mechanic. Prescriptions: predniSONE [Deltasone] 20 mg PO QDAY #30 tablet Hydrocortisone [Hydrocortisone 2.5% RECTAL CREAM] 30 gm RC BID #14 cream.appl Pramoxine HCl [Proctofoam] 5 applic TP QID #1 foam Referrals: JORGE LONDONO MD [Staff Physician] - 3-5 Days HO OROZCO MD [Staff Physician] - 3-5 Days SUSIE HAWK MD [Staff Physician] - 3-5 Days Forms: Work/School Release Form(ED) Time of Disposition: 15:57
[2019-05-11 13:38] LABS: Hematocrit 31.6 % (30.3-42.9); Hemoglobin 9.8 gm/dl (10.1-14.3); Mean Corpuscular HGB Conc 31 % (30-34); Mean Corpuscular Volume 73 fl (79-97); Platelet Count 501 K/mm3 (140-440); Red Blood Count 4.36 M/mm3 (3.65-5.03); Red Cell Distribution Width 25.2 % (13.2-15.2)
[2019-05-11 13:57] LABS: Alanine Aminotransferase 6 units/L (7-56); BUN/Creatinine Ratio 28; Blood Urea Nitrogen 11 mg/dL (7-17); Calcium 9.5 mg/dL (8.4-10.2); Hemolysis Index 0
[2019-05-11 14:52] LABS: Mucus,Urine 3+ /HPF; RBC,Urine > 182.0 /HPF (0.0-6.0)
[2019-05-11 14:53] LABS: Bacteria,Urine 3+ /HPF (Negative); Bilirubin,Urine NEG (Negative); Blood,Urine LG (Negative); Color,Urine Red (Yellow); Sperm,Urine 1+ /HPF (NP); Urobilinogen,Urine < 2.0 mg/dL (<2.0)
[2019-05-11] MEDS ORDERED: POTASSIUM CHLORIDE ER 20 MEQ TAB PO ONE (15:42)
== END 2019-05-11 16:08 | disposition home or self-care (01) ==
LOC: ED 11:23
DX: K64.4 Residual hemorrhoidal skin tags (principal); Z76.0 Encounter for issue of repeat prescription; D64.9 Anemia, unspecified; F17.200 Nicotine dependence, unspecified, uncomplicated; Z79.899 Other long term (current) drug therapy
CPT/HCPCS: 36415; 80053; 81001; 85027; 96372; 99283; J1885

== ENCOUNTER 2020-05-03 15:59 | Emergency (ER) | payer MEDICAID ==
[2020-05-03 16:47] VITALS: BP 123/79
--- NOTE | 2020-05-03 20:08 | XRay Report ---
LUMBAR SPINE 3 VIEWS INDICATION / CLINICAL INFORMATION: MAIN. COMPARISON: None available. FINDINGS: No significant skeletal abnormality. Alignment is normal. Signer Name: Greg Stoner MD FACR Signed: 05/03/2020 8:04 PM Workstation Name: [email or web address]
--- NOTE | 2020-05-03 20:09 | XRay Report ---
RIGHT KNEE 2 VIEWS INDICATION / CLINICAL INFORMATION: MAIN. COMPARISON: None available. FINDINGS: No significant skeletal abnormality Signer Name: Greg Stoner MD FACR Signed: 05/03/2020 8:05 PM Workstation Name: [id number]
--- NOTE | 2020-05-03 20:09 | XRay Report ---
RIGHT SHOULDER 3 VIEWS INDICATION / CLINICAL INFORMATION: MAIN. COMPARISON: None available. FINDINGS: No significant skeletal abnormality Signer Name: Greg Stoner MD FACR Signed: 05/03/2020 8:04 PM Workstation Name: [email or web address]
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
== END 2020-05-03 21:09 | disposition home or self-care (01) ==
LOC: ED 15:59
DX: S10.93XA Contusion of unspecified part of neck, initial encounter (principal); Z98.890 Other specified postprocedural states; F12.10 Cannabis abuse, uncomplicated; Z79.899 Other long term (current) drug therapy; V49.49XA Driver injured in collision with other motor vehicles in traffic accident, initial encounter; Y93.89 Activity, other specified; Y92.488 Other paved roadways as the place of occurrence of the external cause; Y99.8 Other external cause status
CPT/HCPCS: 72040; 72100

== ENCOUNTER 2020-05-18 17:51 | Emergency (ER) | payer OTHER, MEDICAID ==
[2020-05-18 18:13] VITALS: BP 108/74
[2020-05-18] MEDS ORDERED: IBUPROFEN 800 MG TAB PO ONE (18:18)
[2020-05-18] MEDS ORDERED: BUTALB/ACETAMINOPHEN/CAFFEINE TAB PO STA (18:18)
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
== END 2020-05-18 20:45 | disposition home or self-care (01) ==
LOC: ED 17:51
DX: S16.1XXA Strain of muscle, fascia and tendon at neck level, initial encounter (principal); R51.9 Headache, unspecified; Z98.890 Other specified postprocedural states; Z79.899 Other long term (current) drug therapy; V49.49XA Driver injured in collision with other motor vehicles in traffic accident, initial encounter; Y93.89 Activity, other specified; Y92.410 Unspecified street and highway as the place of occurrence of the external cause; Y99.8 Other external cause status
CPT/HCPCS: 70450; 72125